=== PATIENT | female | born 1940 | race Caucasian/White ===

== ENCOUNTER 2017-10-17 08:17 | Inpatient (IN) | payer OTHER ==
[2017-10-08 12:35] VITALS: BMI 31.7
--- NOTE | 2017-10-17 07:24 | HP ---
Admitting History and Physical - Admission Chief Complaint: painful right total knee arthroplasty x years History of Present Illness: 76-year-old female presenting in regard to her right knee. Previous right total knee arthroplasty. Patient has complained of pain, limited range of motion, and difficulty ambulating. Patient has failed conservatuve treatment options including PO medication, activity modification and injections. After extensive studies it is determined that patient is right on the arthroplasty does reveal possible loosening of the components. Patient like to proceed with a revision right total knee arthroplasty. History Source: Patient - Past Medical History Cardiovascular: Yes: HTN, Hyperlipdemia ...: No Heme/Onc: Yes: Anemia Musculoskeletal: Yes: Osteoarthritis Endocrine: Yes: Diabetes Mellitus - Past Surgical History Additional Past Surgical History: previous right total knee arthroplasty - Advance Directives Advance Directives: Yes: Living Will, Health Care Proxy - Smoking History Smoking history: Never smoked Have you smoked in the past 12 months: No - Alcohol/Substance Use Hx Alcohol Use: No Home Medications - Allergies Allergies/Adverse Reactions: Allergies Allergy/AdvReac Type Severity Reaction Status Date / Time No Known Drug Allergies Allergy Verified 10/08/17 12:06 - Home Medications Home Medications: Ambulatory Orders Beta-Carotene(A) W-C and E/Min [Ocuvite (Nf)] 1 tab PO DAILY 10/08/17 Cyanocobalamin (Vitamin B-12) [Vitamin B12] 1,000 mcg PO DAILY 10/08/17 Ferrous Sulfate 325 mg PO DAILY 10/08/17 Furosemide 20 mg PO ASDIR PRN 10/08/17 Lisinopril 10 mg PO DAILY 10/08/17 Meloxicam 15 mg PO DAILY 10/08/17 Metformin HCl [Glucophage] 500 mg PO BID 10/08/17 Sumatriptan Succinate [Imitrex -] 100 mg PO ASDIR PRN 10/08/17 Physical Examination Constitutional: Yes: Well Nourished, No Distress Eyes: Yes: Conjunctiva Clear HENT: Yes: Atraumatic, Normocephalic Neck: Yes: Supple Cardiovascular: Yes: Regular Rate and Rhythm Respiratory: Yes: Regular Gastrointestinal: Yes: Soft ...Rectal Exam: Yes: Deferred Musculoskeletal: Yes: Joint Stiffness (right knee), Joint Swelling (right knee) , Other (painful right knee) Assessment/Plan 76-year-old female presenting in regard to her right knee. Previous right total knee arthroplasty. Patient has complained of pain, limited range of motion, and difficulty ambulating. Patient has failed conservative treatment options including PO medication, activity modification and injections. After extensive studies it is determined that patient is right on the arthroplasty does reveal possible loosening of the components. Pros, cons, risks, benefits, and alternatives of a revision right total knee arthroplasty were discussed with the patient at length. Patient confirms her understanding. Patient consents to proceed with a revision right total knee arthroplasty.
[~2017-10-17 08:17] MED LIST: CELECOXIB 200 MG CAPSULE PO ONE; GABAPENTIN 300 MG CAPSULE (FP) PO ONE; PANTOPRAZOLE 40 MG TABLET (FP) PO ONE; oxyCODONE HCL 10 MG SUSTAINED ACTING TABLET PO ONE
[2017-10-17] MEDS ORDERED: PANTOPRAZOLE 40 MG TABLET (FP) ONE (08:55)
[2017-10-17] MEDS ORDERED: CELECOXIB 200 MG CAPSULE ONE (08:56)
[2017-10-17] MEDS ORDERED: GABAPENTIN 300 MG CAPSULE (FP) ONE (08:56)
[2017-10-17] MEDS ORDERED: oxyCODONE HCL 10 MG SUSTAINED ACTING TABLET ONE (08:56)
[2017-10-17] MEDS ORDERED: SODIUM CHLORIDE 0.9% P/F 10 ML VIAL IJ ONE (10:30)
[2017-10-17] MEDS ORDERED: CEFAZOLIN 2 GM in DEXTROSE 5%-WATER - 50 ML IVPB ONE (10:30)
[2017-10-17] MEDS ORDERED: BUPIVACAINE LIPOSOME/PF (EXPAREL) 266 MG/20 ML VIAL ONE (10:30)
[2017-10-17] MEDS ORDERED: TRANEXAMIC ACID 1000 MG/10 ML VIAL IVPUSH ONE (10:30)
[2017-10-17] MEDS ORDERED: BUPIVACAINE HCL/PF (5 MG/ML) 30 ML VIAL IJ ONE (10:30)
[2017-10-17] MEDS ORDERED: ROPIVICAINE 0.2%/MORPH PF/KETOROLAC - 51ML DISP.SYRINGE IA ONE ×3 (10:30→16:42)
[2017-10-17] MEDS ORDERED: MIDAZOLAM HCL 2 MG/2 ML SINGLE DOSE VIAL ONE ×2 (10:30→15:41)
[2017-10-17] MEDS ORDERED: TRANEXAMIC ACID 1000 MG/10 ML VIAL ONE ×3 (11:25→16:34)
[2017-10-17] MEDS ORDERED: VANCOMYCIN 1,000 MG VIAL (RESTRICTED TO ID ONLY) ONE (11:25)
[2017-10-17] MEDS ORDERED: ceFAZolin SODIUM 1 GM VIAL ONE ×3 (11:25→16:39)
[2017-10-17] MEDS ORDERED: DEXAMETHASONE SOD PHOSPHATE 4 MG/1 ML VIAL ONE (11:58)
[2017-10-17] MEDS ORDERED: ONDANSETRON 4 MG/2 ML VIAL ONE (11:58)
[2017-10-17] MEDS ORDERED: PHENYLEPHRINE HCL 10 MG/1 ML SINGLE DOSE VIAL ONE (12:12)
[2017-10-17] MEDS ORDERED: PROPOFOL 20 ML ONE (16:13)
[2017-10-17] MEDS ORDERED: ONDANSETRON 4 MG/2 ML VIAL IVPUSH PRN ×2 (17:23→17:38)
[2017-10-17] MEDS ORDERED: oxyCODONE HCL 5 MG TABLET PO PRN (17:23)
[2017-10-17] MEDS ORDERED: ACETAMINOPHEN 1000 MG/100 ML VIAL (NON FORMULARY) IVPB ONE ×3 (17:23→18:00)
--- NOTE | 2017-10-17 17:27 | SURG ---
Surgery Vocational Training Teacher Note Vocational Training Teacher: Giacomo Hines PA-C Date of Service: 10/17/17 Diagnosis: Right knee osteoarthritis and knee pain Procedure: Right Total knee replacement revision I was present for the entirety of the operative procedure. For further detail, please refer to operative report.
[2017-10-17] MEDS ORDERED: ACETAMINOPHEN 325 MG TABLET (FP) PO SCH (17:30)
[2017-10-17] MEDS ORDERED: SUMAtriptan SUCCINATE 50 MG TABLET PO PRN (17:34)
[2017-10-17] MEDS ORDERED: MAG HYDROX/AL HYDROX/SIMETH 30 ML UNIT-DOSE CUP PO PRN (17:38)
[2017-10-17] MEDS ORDERED: ONDANSETRON 4 MG/2 ML VIAL IVPUSH ONE (17:38)
[2017-10-17] MEDS ORDERED: MAGNESIUM HYDROX 2400MG/30ML ORAL SUSPENSION 30 ML CUP PO PRN (17:38)
[2017-10-17] MEDS ORDERED: LACTATED RINGERS SOLUTION 1,000 ML IV SCH (17:45)
[2017-10-17] MEDS ORDERED: ACETAMINOPHEN INJECTION 100 ML IVPB ONE (17:49)
[2017-10-17] MEDS ORDERED: traMADol HCL 50 MG TABLET ONE (17:49)
[2017-10-17] MEDS ORDERED: KETOROLAC TROMETHAMINE 30 MG/1 ML VIAL ONE (17:49)
[2017-10-17] MEDS ORDERED: KETOROLAC TROMETHAMINE 15 MG/ML VIAL IVPUSH ONE (17:50)
[2017-10-17] MEDS ORDERED: traMADol HCL 50 MG TABLET PO ONE (18:20)
[2017-10-17] MEDS: metFORMIN HCL 500 MG TABLET (FP) PO SCH (20:30)
[2017-10-17] MEDS: CELECOXIB 200 MG CAPSULE PO SCH (21:29)
[2017-10-17] MEDS: oxyCODONE HCL 10 MG SUSTAINED ACTING TABLET PO SCH (21:30)
[2017-10-17] MEDS: GABAPENTIN 300 MG CAPSULE (FP) PO SCH (21:30)
[2017-10-17] MEDS: ASCORBIC ACID 500 MG TABLET (FP) PO SCH (21:32)
[2017-10-17] MEDS: SENNOSIDES/DOCUSATE COMBO (SENNA PLUS) TABLET (UD) PO SCH (21:32)
[2017-10-17] MEDS: oxyCODONE HCL 5 MG TABLET PO PRN (21:34)
[2017-10-17] MEDS: FERROUS SO4 325 MG TABLET (FP) PO SCH (21:35)
[2017-10-18] MEDS ORDERED: DEXAMETHASONE SOD PHOSPHATE 10 MG/1 ML VIAL IVPB ONE
[2017-10-18] MEDS: CEFAZOLIN 2 GM/D5W 2 GM/50 ML ML IVPB SCH ×3 (00:47→09:39)
[2017-10-18] MEDS: traMADol HCL 50 MG TABLET PO SCH ×5 (00:50→19:58)
[2017-10-18] MEDS: ACETAMINOPHEN 325 MG TABLET (FP) PO SCH ×4 (00:50→19:59)
[2017-10-18] MEDS: KETOROLAC TROMETHAMINE 30 MG/1 ML VIAL IVPUSH SCH ×4 (00:51→19:58)
[2017-10-18] MEDS ORDERED: DEXAMETHASONE SOD PHOSPHATE 10 MG/1 ML VIAL ONE (04:34)
[2017-10-18] MEDS: metFORMIN HCL 500 MG TABLET (FP) PO SCH ×2 (07:05→17:30)
[2017-10-18 09:29] LABS: HEMATOCRIT 27.8 % (32.4-45.2); HEMOGLOBIN 8.9 GM/dl (10.7-15.3); MCH 27.6 pg (25.7-33.7); MCHC 31.9 g/dl (32.0-36.0); MEAN CELL VOLUME 86.3 fl (80-96); MEAN PLT VOLUME 7.4 fl (7.5-11.1); PLATELET COUNT 202 K/MM3 (134-434); RBC 3.22 M/mm3 (3.60-5.2); RDW 14.6 % (11.6-15.6); WHITE BLOOD COUNT 8.4 K/mm3 (4.0-10.8)
[2017-10-18] MEDS: FERROUS SO4 325 MG TABLET (FP) PO SCH ×2 (09:31→17:30)
[2017-10-18] MEDS: CELECOXIB 200 MG CAPSULE PO SCH ×2 (09:31→21:41)
[2017-10-18] MEDS: SENNOSIDES/DOCUSATE COMBO (SENNA PLUS) TABLET (UD) PO SCH ×2 (09:31→21:42)
[2017-10-18] MEDS: ASCORBIC ACID 500 MG TABLET (FP) PO SCH ×2 (09:32→21:41)
[2017-10-18] MEDS: LISINOPRIL 10 MG TABLET (FP) PO SCH (09:32)
[2017-10-18] MEDS: ASPIRIN 325 MG TABLET PO SCH (09:32)
[2017-10-18] MEDS: MULTIVITAMINS (DAILY MVI) TABLET (FP) PO SCH (09:33)
[2017-10-18] MEDS: GABAPENTIN 300 MG CAPSULE (FP) PO SCH ×2 (09:33→21:41)
[2017-10-18] MEDS: PANTOPRAZOLE 40 MG TABLET (FP) PO SCH (09:34)
[2017-10-18 09:56] LABS: ANION GAP 6 (8-16); BLOOD UREA NITROGEN 18 mg/dl (7-18); CALCIUM 7.9 mg/dl (8.4-10.2); CHLORIDE 105 mmol/L (98-107); CO2 21 mmol/L (22-28); CREATININE 0.8 mg/dl (0.6-1.3); GLUCOSE,RANDOM 148 mg/dl (74-106); POTASSIUM 4.2 mmol/L (3.5-5.1); SODIUM 132 mmol/L (136-145)
[2017-10-18] MEDS: FUROSEMIDE 20 MG TABLET (FP) PO SCH (13:01)
--- NOTE | 2017-10-18 13:15 | PN ---
Progress Note (short form) - Note Progress Note: 76F POD1 s/p revision R TKR under spinal anesthetic with peripheral nerve blocks for post operative pain relief. Pt states that pain is well controlled and reports no anesthetic complications. AVSS. Motor and sensory function intact in bilateral lower extremities. Continue current regimen.
[2017-10-18] MEDS: oxyCODONE HCL 10 MG SUSTAINED ACTING TABLET PO SCH ×2 (15:27→21:41)
[2017-10-18] MEDS: LACTATED RINGERS SOLUTION 1,000 ML IV SCH ×2 (19:56→19:57)
[2017-10-18] MEDS: oxyCODONE HCL 5 MG TABLET PO PRN (20:14)
--- NOTE | 2017-10-18 20:21 | PN ---
Progress Note (short form) - Note Progress Note: Pt seen and examined. Doing well. AVSS Selected Entries 10/18/17 10/18/17 10/18/17 04:21 08:31 14:32 Temperature 98.6 F Pulse Rate 66 Respiratory 16 Rate Blood Pressure 110/43 O2 Sat by Pulse 96 92 L Oximetry (%) Oxygen Delivery Nasal Cannula Room Air Method Laboratory Tests 10/18/17 10/18/17 07:30 07:30 WBC 8.4 Hgb 8.9 L Hct 27.8 L Plt Count 202 Sodium 132 L Potassium 4.2 Chloride 105 Carbon Dioxide 21 L Anion Gap 6 L BUN 18 Creatinine 0.8 Creat Clearance w eGFR > 60 Random Glucose 148 H Calcium 7.9 L Gen: NAD RLE: c/d/i, NVID A/P 76yo female POD#1 s/p revision R TKA 1. PT/OOB 2. Plan for d/c to SNF Saturday
[2017-10-19] MEDS: ACETAMINOPHEN 325 MG TABLET (FP) PO SCH ×4 (00:30→19:34)
[2017-10-19] MEDS: traMADol HCL 50 MG TABLET PO SCH ×4 (01:07→18:34)
--- NOTE | 2017-10-19 06:04 | PDOC ---
*Physical Exam - Vital Signs Last Vital Signs Temp Pulse Resp BP Pulse Ox 98.4 F 74 20 114/56 95 10/19/17 03:30 10/19/17 03:30 10/19/17 03:30 10/19/17 03:30 10/18/17 22:15 ED Treatment Course - LABORATORY CBC & Chemistry Diagram: 10/19/17 07:50 10/18/17 07:30 - ADDITIONAL ORDERS Additional order review: 10/18/17 10/18/17 10/17/17 07:30 07:03 17:34 RBC 3.22 L MCV 86.3 MCHC 31.9 L RDW 14.6 MPV 7.4 L POC Glucometer 155 232 10/17/17 08:52 RBC MCV MCHC RDW MPV POC Glucometer 83 - Medications Given in the ED: ED Medications Discontinued Medications Generic Name Dose Route Start Last Admin Trade Name Kaliq PRN Reason Stop Dose Admin Acetaminophen 1,000 mg 10/17/17 18:00 10/18/17 19:56 Ofirmev Injection - IVPB 10/17/17 18:01 Not Given ONCE ONE Celecoxib 200 mg 10/16/17 19:01 10/17/17 09:05 Celebrex - PO 10/16/17 19:02 200 mg ASU-PREOP ONE Administration Dexamethasone Sodium Phosphate 10 mg 10/18/17 00:00 10/18/17 00:00 Decadron Injection - IVPB 10/18/17 00:01 10 mg ONCE ONE Administration Gabapentin 600 mg 10/16/17 19:01 10/18/17 20:03 Neurontin - PO 10/16/17 19:02 Not Given ASU-PREOP ONE Cefazolin Sodium 2 gm/ 50 mls @ 100 mls/hr 10/17/17 10:30 10/18/17 20:02 Dextrose IVPB 10/17/17 10:59 Not Given ANES-PREOP ONE Lactated Ringer's 1,000 mls @ 125 mls/hr 10/17/17 17:45 10/18/17 19:56 Lactated Ringers Solution IV 10/18/17 06:00 Not Given ASDIR MERLIN Cefazolin Sodium/Dextrose 2 gm in 50 mls @ 200 mls/hr 10/17/17 18:00 09:39 Ancef 2 Gm Premixed Ivpb - IVPB 10/18/17 10:14 200 mls/hr Q8H-IV MERLIN Administration Ketorolac Tromethamine 15 mg 10/17/17 17:45 10/18/17 19:58 Toradol Injection - IVPUSH 10/18/17 11:46 Not Given Q6H MERLIN Oxycodone HCl 10 mg 10/16/17 19:01 10/18/17 20:03 Oxycontin - PO 10/16/17 19:02 Not Given ASU-PREOP ONE Pantoprazole Sodium 40 mg 10/16/17 19:02 10/18/17 20:03 Protonix - PO 10/16/17 19:03 Not Given ONCE ONE Ropivacaine 51 ml 10/17/17 10:30 10/18/17 19:57 Carlota-Operative Pain Cocktail IA 10/17/17 10:31 Not Given ONCE ONE Tranexamic Acid 1,000 mg 10/17/17 10:30 10/18/17 19:57 Tranexamic Acid - IVPUSH 10/17/17 10:31 Not Given ONCE ONE Medical Decision Making - Medical Decision Making 10/19/17 05:58 Patient ambulated to the bathroom tonight, she states that after getting up from toilet ndn prior to washing hands, she was leaning on her walker when the walker slipped and she placed her weight on her right knee that was recently replaced. She felt a twinge of pain and fell to her left side as a result, and twisted to the floor. Pt was lifted up by nurses. I evaluated her knee and there is no undue warmth or bruising. Her knee joint is stable and she has no surrounding tenderness. Pt is able to flex her right hip and right knee, but she is unable to do a striaght leg raise. Unclear if patellar tendon is injured. Pt will not require XR or CT scan at this time. She will be evaluated by her doctors in the AM. SHe may require MRI for further eval, as per her orthopedists. Pt has been reassured. She is comfortable. A+Ox3 no distress. No further treatment at this time. *DC/Admit/Observation/Transfer Diagnosis at time of Disposition: Knee buckling - Referrals - Patient Instructions - Post Discharge Activity
[2017-10-19] MEDS: metFORMIN HCL 500 MG TABLET (FP) PO SCH ×2 (06:57→16:30)
[2017-10-19] MEDS: ASPIRIN 325 MG TABLET PO SCH (07:57)
[2017-10-19] MEDS: FERROUS SO4 325 MG TABLET (FP) PO SCH ×2 (07:58→17:30)
[2017-10-19 09:24] LABS: HEMATOCRIT 25.1 % (32.4-45.2); HEMOGLOBIN 8.3 GM/dl (10.7-15.3); MCH 28.5 pg (25.7-33.7); MCHC 33.1 g/dl (32.0-36.0); MEAN CELL VOLUME 86.1 fl (80-96); MEAN PLT VOLUME 7.1 fl (7.5-11.1); PLATELET COUNT 176 K/MM3 (134-434); RBC 2.91 M/mm3 (3.60-5.2); RDW 14.6 % (11.6-15.6); WHITE BLOOD COUNT 6.2 K/mm3 (4.0-10.8)
[2017-10-19] MEDS: oxyCODONE HCL 10 MG SUSTAINED ACTING TABLET PO SCH ×2 (09:33→22:35)
[2017-10-19] MEDS: GABAPENTIN 300 MG CAPSULE (FP) PO SCH ×2 (09:33→22:36)
[2017-10-19] MEDS: PANTOPRAZOLE 40 MG TABLET (FP) PO SCH (09:33)
[2017-10-19] MEDS: CELECOXIB 200 MG CAPSULE PO SCH ×2 (09:34→22:36)
[2017-10-19] MEDS: ASCORBIC ACID 500 MG TABLET (FP) PO SCH ×2 (09:34→22:36)
[2017-10-19] MEDS: LISINOPRIL 10 MG TABLET (FP) PO SCH (09:34)
[2017-10-19] MEDS: MULTIVITAMINS (DAILY MVI) TABLET (FP) PO SCH (09:34)
[2017-10-19] MEDS: FUROSEMIDE 20 MG TABLET (FP) PO SCH (09:34)
[2017-10-19] MEDS: SENNOSIDES/DOCUSATE COMBO (SENNA PLUS) TABLET (UD) PO SCH ×2 (09:34→22:36)
[2017-10-20] MEDS: ACETAMINOPHEN 325 MG TABLET (FP) PO SCH ×3 (00:02→12:24)
[2017-10-20] MEDS: traMADol HCL 50 MG TABLET PO SCH ×4 (00:02→17:41)
[2017-10-20] MEDS: metFORMIN HCL 500 MG TABLET (FP) PO SCH ×2 (07:01→17:41)
--- NOTE | 2017-10-20 07:20 | PN ---
Progress Note (short form) - Note Progress Note: Pt seen and examined. Doing well. AVSS Selected Entries 10/19/17 10/19/17 10/20/17 22:00 22:15 05:57 Temperature 97.8 F 97.6 F Pulse Rate 75 80 Respiratory 19 18 Rate Blood Pressure 109/42 106/45 O2 Sat by Pulse 95 94 L Oximetry (%) Oxygen Delivery Room Air Room Air Method Laboratory Tests 10/19/17 07:50 WBC 6.2 Hgb 8.3 L Hct 25.1 L Plt Count 176 Gen: NAD RLE: c/d/i, NVID A/P 76yo female s/p revision R TKA 1. PT/OOB 2. Plan for d/c to SNF Saturday
[2017-10-20] MEDS: SENNOSIDES/DOCUSATE COMBO (SENNA PLUS) TABLET (UD) PO SCH ×2 (09:12→21:16)
[2017-10-20] MEDS: oxyCODONE HCL 10 MG SUSTAINED ACTING TABLET PO SCH ×2 (09:12→22:55)
[2017-10-20] MEDS: MULTIVITAMINS (DAILY MVI) TABLET (FP) PO SCH (09:14)
[2017-10-20] MEDS: ASCORBIC ACID 500 MG TABLET (FP) PO SCH ×2 (09:14→21:16)
[2017-10-20] MEDS: FUROSEMIDE 20 MG TABLET (FP) PO SCH (09:14)
[2017-10-20] MEDS: PANTOPRAZOLE 40 MG TABLET (FP) PO SCH (09:15)
[2017-10-20] MEDS: CELECOXIB 200 MG CAPSULE PO SCH ×2 (09:15→21:16)
[2017-10-20] MEDS: FERROUS SO4 325 MG TABLET (FP) PO SCH ×2 (09:15→17:41)
[2017-10-20] MEDS: GABAPENTIN 300 MG CAPSULE (FP) PO SCH (09:15)
[2017-10-20] MEDS: ASPIRIN 325 MG TABLET PO SCH (09:15)
[2017-10-20] MEDS: LISINOPRIL 10 MG TABLET (FP) PO SCH (09:15)
[2017-10-20] MEDS ORDERED: oxyCODONE HCL 5 MG TABLET PO PRN ×2 (22:38)
[2017-10-21] MEDS: ACETAMINOPHEN 325 MG TABLET (FP) PO SCH ×3 (00:56→12:00)
[2017-10-21] MEDS: traMADol HCL 50 MG TABLET PO SCH ×3 (00:56→12:00)
[2017-10-21] MEDS: metFORMIN HCL 500 MG TABLET (FP) PO SCH (06:40)
[2017-10-21 06:45] VITALS: BP 116/48; PULSE 82; TEMP 98.1
--- NOTE | 2017-10-21 08:25 | DS ---
Physical Examination Vital Signs: Vital Signs Temperature 98.1 F 10/21/17 06:00 Pulse Rate 82 10/21/17 06:00 Respiratory Rate 18 10/21/17 06:00 Blood Pressure 116/48 10/21/17 06:00 O2 Sat by Pulse Oximetry (%) 99 10/21/17 06:43 Labs: CBC, BMP 10/19/17 07:50 10/18/17 07:30 Discharge Summary Reason For Visit: HISTORY OF TTL KNEE REPLACEMENT Current Active Problems Knee buckling (Acute) Procedures: Principal: Revision right TKA Hospital Course: Admitted for elective surgery. Procedure performed without complications. Pt received postoperative antibiotic prophylaxis and DVT ppx. Ambulated with physical therapy. Stable for discharge to SNF with outpatient followup. Condition: Stable - Instructions Diet, Activity, Other Instructions: Dr. Ceja - Knee Replacement Instructions Keep the Aquacel dressing on until removed by Dr. Ceja in 10-14 days - it is antibacterial and waterproof and you can shower with it on. Call the office for a follow-up appointment with Dr. Ceja in 10-14 days. [phone] Take one Aspirin 325mg daily for 6 weeks to prevent blood clots in your legs. Take one Pantoprazole 40mg daily for 6 weeks to protect against heartburn and ulcers. Take Cephalexin (antibiotic) 3x/day for 10 days to help prevent skin infection. Take Celebrex 200mg daily for 30 days to reduce swelling and inflammation. Take a multivitamin, stool softener, and extra Vitamin C supplement daily. For pain: *Mild pain (1-3/10): Take 1 Tramadol tablet every 4 hours as needed. Moderate pain (4-6/10): Take 1 Tramadol tablet and 1 Percocet tablet every 4 hours as needed. Severe pain (7-10/10): Take 1 Tramadol tablet and 2 Percocet tablets every 4 hours as needed. Activity: You can put as much weight on the operative leg as you want. Right after you get home, there will be a physical therapist coming to your house to help you walk around and bend/straighten your knee. After your follow-up appointment, you will be sent for more intensive outpatient physical therapy which will include machines and equipment that the home therapist cannot bring to your house. Always use a walker or cane for balance and to prevent falls. Expect to see swelling/bruising from the operative site all the way down to your toes. Wear the compression stocking on the operative side during the day to minimize how much swelling there is in your foot/ankle. Don't wear the stocking at night. You don't have to wear a stocking on the other side. Disposition: [facility] - Home Medications Comprehensive Discharge Medication List: Ambulatory Orders Beta-Carotene(A) W-C and E/Min [Ocuvite (Nf) -] 1 tab PO DAILY 10/08/17 Cyanocobalamin (Vitamin B-12) [Vitamin B12] 1,000 mcg PO DAILY 10/08/17 Ferrous Sulfate 325 mg PO DAILY 10/08/17 Furosemide 20 mg PO ASDIR PRN 10/08/17 Lisinopril 10 mg PO DAILY 10/08/17 Metformin HCl [Glucophage] 500 mg PO BID 10/08/17 Sumatriptan Succinate [Imitrex -] 100 mg PO ASDIR PRN 10/08/17 Ascorbic Acid [Vitamin C -] 500 mg PO BID tablet 10/21/17 Aspirin [ASA -] 325 mg PO DAILY@0800 tablet 10/21/17 Celecoxib [CeleBREX -] 200 mg PO DAILY #30 capsule 10/21/17 Cephalexin Monohydrate [Keflex -] 500 mg PO TID #30 capsule 10/21/17 Ferrous Sulfate [Feosol] 325 mg PO BIDWM ud 10/21/17 Mag Hydrox/Al Hydrox/Simeth [Mylanta Oral Suspension -] 30 ml PO Q4H PRN cup Magnesium Hydrox 2400MG/30Ml [Milk of Magnesia -] 30 ml PO PRN PRN cup Multivitamins [Multivit ([facility] Formulary)] 1 tab PO DAILY tab 10/21/17 Oxycodone HCl/Acetaminophen [Percocet 5-325 mg Tablet] 1 - 2 tab PO Q4H PRN #60 tablet MDD 10 10/21/17 Pantoprazole Sodium [Protonix -] 40 mg PO DAILY #40 tablet.ec 10/21/17 Sennosides/Docusate Sodium [Pericolace -] 2 tablet PO BID tablet 10/21/17 traMADol HCL [Ultram -] 50 mg PO Q4H PRN #42 tablet MDD 6 10/21/17
[2017-10-21] MEDS: ASPIRIN 325 MG TABLET PO SCH (09:25)
[2017-10-21] MEDS: MULTIVITAMINS (DAILY MVI) TABLET (FP) PO SCH (09:26)
[2017-10-21] MEDS: PANTOPRAZOLE 40 MG TABLET (FP) PO SCH (09:26)
[2017-10-21] MEDS: LISINOPRIL 10 MG TABLET (FP) PO SCH (09:26)
[2017-10-21] MEDS: ASCORBIC ACID 500 MG TABLET (FP) PO SCH (09:26)
[2017-10-21] MEDS: CELECOXIB 200 MG CAPSULE PO SCH (09:26)
[2017-10-21] MEDS: FERROUS SO4 325 MG TABLET (FP) PO SCH (09:26)
[2017-10-21] MEDS: oxyCODONE HCL 10 MG SUSTAINED ACTING TABLET PO SCH (09:27)
[2017-10-21] MEDS: FUROSEMIDE 20 MG TABLET (FP) PO SCH (09:27)
[2017-10-21] MEDS: SENNOSIDES/DOCUSATE COMBO (SENNA PLUS) TABLET (UD) PO SCH (09:27)
[2017-10-21] MEDS ORDERED: oxyCODONE HCL 10 MG SUSTAINED ACTING TABLET PO SCH (10:00)
--- NOTE | 2017-10-21 11:43 | PN ---
Progress Note (short form) - Note Progress Note: Pt seen and examined. Doing well. AVSS Selected Entries 10/21/17 10/21/17 06:00 06:43 Temperature 98.1 F Pulse Rate 82 Respiratory 18 Rate Blood Pressure 116/48 O2 Sat by Pulse 99 Oximetry (%) Oxygen Delivery Room Air Method Gen: NAD RLE: c/d/i, NVID A/P 76yo female s/p revision R TKA 1. PT/OOB 2. Plan for d/c to SNF today
--- NOTE | 2017-10-22 10:38 | PATH ---
Surgical Pathology Report Patient Name: GENIE ONEILL Med. Rec. #: [id number] /Age/Gender: 1940 (Age: 76) / F Account: [id number] Location: [facility] Taken: 10/17/2017 Received: 10/17/2017 Reported: 10/22/2017 Physicians: Kaiser Ceja M.D. Specimen(s) Received EXPLANTED HARDWARE RIGHT KNEE Clinical History Painful total knee replacement Final Diagnosis HARDWARE, KNEE, RIGHT, EXPLANTATION: SURGICAL HARDWARE. MACROSCOPIC DIAGNOSIS. Electronically Signed Mely Taylor M.D. Gross Description Received fresh labeled "explanted hardware right knee," are 3 pepe metallic and white plastic portions of hardware but consistent with a knee explant. The specimens average 6.5 cm in greatest dimension. No soft tissue is present. No sections are submitted, gross only. /10/21/2017 saudi10/21/2017
--- NOTE | 2017-10-24 09:05 | OP ---
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 POSTOPERATIVE DIAGNOSIS: Failed right total knee replacement. PROCEDURE: Revision of right total knee replacement. ATTENDING: Tony Washington MD TIRE TESTER: LEONARDO Marie ANESTHESIA: Spinal plus sedation. ESTIMATED BLOOD LOSS: 300 mL COMPLICATIONS: None. DISPOSITION: The patient was transferred to the PACU in stable condition. IMPLANTS USED: [employer] Triathlon revision system, size 3 femoral component with 100-mm stem, size 2 tibial component with 100-mm stem, 19-mm total-stabilized polyethylene component. INDICATIONS: This is a 76-year-old female who presented to the office complaining of a painful right total knee replacement. She had had the knee replaced approximately 2 years prior and had never had full pain relief after the surgery. She had severe pain and ambulatory dysfunction despite physical therapy and nonoperative postop management. Multiple studies were performed to evaluate for infection and loosening, and there was found to be no evidence of infection, though a bone scan did indicate that there was uptake suggestive of loosening of the components. Because the patient had severe pain that was unrelenting, we elected to proceed with a revision of the total knee replacement. The risks, benefits, and alternatives to the procedure were explained to the patient and her daughter in great detail, and they elected to proceed with the surgery. On the day of surgery, the patient was taken to the operating room and placed on the OR table. Spinal anesthesia was administered by anesthesiologist. The patient was then positioned supine on the table, and all bony prominences were padded. A non-sterile tourniquet was placed on the proximal thigh. The right knee was then prepped and draped in the usual sterile fashion, and intravenous antibiotics were given for infection prophylaxis. A surgical timeout was then performed with the team, and the patient's identity, procedure, side, availability of implants, and the administration of antibiotics were confirmed. With the knee flexed, a midline incision was made and carried down through the subcutaneous fat to the underlying retinaculum. This incision incorporated the previous knee replacement incision scar. A medial parapatellar arthrotomy was performed. This was followed by a subperiosteal dissection of the tissue off the proximal medial tibia. A portion of the fat pad and scar tissue was removed from under the patella tendon which was found to be fibrotic and thickened. A small portion of fat and scar tissue was excised off a distal supracondylar femur as well. Additional arthrolysis was performed as scar tissue was removed using electrocautery and sharp dissection to re-establish the medial and lateral gutters. There was found to be copious scar tissue located in all compartments of the knee. The knee was then flexed further, and the polyethylene insert was removed to create space to work and to provide greater visualization of the components. The patellar component was found to be well positioned and well fixed with no evidence of loosening and was, therefore, left alone. Hohmann retractors were then placed around the distal femur, and flexible and rigid osteotomes were used to separate the femoral and tibial components from the underlying bone, taking care to preserve as much bone stock as possible. It was found that the tibial component appeared to have subsided into the cancellous bone of the tibial plateau, leaving a rim of cortex that extended above the base of the baseplate. The proximal tibia was then reamed with successively larger reamers until chatter was felt and there was good friction fit. From here, a tibial cutting guide was attached to the shaft of the reamer, and the proximal tibia was then cut with a saw to provide a flat plateau for placement of the revision component. Once this was completed, trial components were placed, and the knee was taken through a full range of motion. Soft tissue balance was assessed in both flexion and extension and found to be appropriate. The patient had preoperatively had significant varus/valgus laxity, and the MCL and LCL were found to be significantly attenuated, requiring the use of a thick polyethylene component. Once the knee was tested, it was found to be stable throughout the full range of motion and was found to have both good balance and good patellar tracking. All the trial components were then removed. All bony surfaces were then cleaned with pulsatile lavage, and the tourniquet was inflated. The bony interface was further irrigated and dried. Bone cement was then prepared on the back table, and final components were assembled and cemented in place in the usual fashion. Extruded cement was removed. The polyethylene trial was placed and the knee was put into extension and axial compression was applied for compression while the cement hardened. Once the cement had hardened, the knee was taken through a full range of motion to assess stability, balance, and patellar tracking. This was found to be appropriate, and the trial polyethylene was exchanged for the appropriately sized real implant. The wound was then thoroughly irrigated with normal saline. A 3-minute dilute Betadine lavage was performed. Following this, the wound was again thoroughly irrigated with normal saline via pulsatile lavage, and wound closure was begun. Number 2 FiberWire and number 0 V-Loc 180 barbed sutures were used to close the arthrotomy. Number 1 Vicryl and 2-0 V-Loc 90 sutures were used in the subcutaneous tissues. The skin was closed using both 3-0 V-Loc 90 suture in a running subcuticular fashion and Dermabond skin adhesive. Once this was completed, a sterile Aquacel dressing was applied. The leg was then wrapped in Webril and an Liam wrap from thigh to toes. The tourniquet was then deflated, and the patient was awakened and taken to the PACU in stable condition. TONY WASHINGTON M.D. [id number]
== END 2017-10-21 13:25 | DRG 468 ==
LOC: FM/S 08:17
PROVIDERS: ADMIT Student in an Organized Health Care Education/Training Program; ATTEND Student in an Organized Health Care Education/Training Program
PROC: 0SPC0JZ Removal of Synthetic Substitute from Right Knee Joint, Open Approach (ICD-10-PCS; 2017-10-17)
PROC: 0SRC0JZ Replacement of Right Knee Joint with Synthetic Substitute, Open Approach (ICD-10-PCS; principal; 2017-10-17 12:33)
DX: T84.032A Mechanical loosening of internal right knee prosthetic joint, initial encounter (principal); I10 Essential (primary) hypertension; E78.5 Hyperlipidemia, unspecified; Z79.84 Long term (current) use of oral hypoglycemic drugs; E11.9 Type 2 diabetes mellitus without complications; D64.9 Anemia, unspecified; Y83.8 Other surgical procedures as the cause of abnormal reaction of the patient, or of later complication, without mention of misadventure at the time of the procedure
CPT/HCPCS: 36415; 73560-TC-RT-FY; 80048; 82962; 85027; 88300-TC; 97116-GP; 97162-GP; J0131; J1100

== ENCOUNTER 2017-10-23 12:16 | Inpatient (IN) | payer OTHER ==
--- NOTE | 2017-10-23 13:20 | PDOC ---
*Physical Exam - Vital Signs Last Vital Signs Temp Pulse Resp BP Pulse Ox 98 F 78 16 132/47 95 10/23/17 12:20 10/23/17 12:20 10/23/17 12:20 10/23/17 12:20 10/23/17 12:20 <Donna Lindsey - Last Filed: 10/23/17 13:26> - Vital Signs Last Vital Signs Temp Pulse Resp BP Pulse Ox 98 F 78 16 132/47 95 10/23/17 12:20 10/23/17 12:20 10/23/17 12:20 10/23/17 12:20 10/23/17 12:20 - Physical Exam Comments: 10/23/17 13:18 The patient was examined by [LEONARDO Dong] under my direct supervision. I personally evaluated the patient. I concur with the above findings and the plan of care. <Edgard Velazco - Last Filed: 10/26/17 02:12> ED Treatment Course - LABORATORY CBC & Chemistry Diagram: 10/25/17 11:20 10/25/17 11:40 <Edgard Velazoc - Last Filed: 10/26/17 02:12> *DC/Admit/Observation/Transfer <Donna Lindsey - Last Filed: 10/23/17 13:26> <Edgard Velazco - Last Filed: 10/26/17 02:12> Diagnosis at time of Disposition: Wound dehiscence - Discharge Dispostion Condition at time of disposition: Stable
--- NOTE | 2017-10-23 13:29 | PDOC ---
History of Present Illness - General Chief Complaint: Injury Stated Complaint: KNEE INJURY Time Seen by Provider: 10/23/17 12:50 History Source: Patient Exam Limitations: No Limitations - History of Present Illness Initial Comments: CHIEF COMPLAINT: 76 y/o afebrile female who had a right total knee replacement revision surgery on 10/17/17 here for suture opening. HISTORY OF PRESENT ILLNESS: The patient was at a SNF and just finishing physical therapy today when her right knee buckled. Her right knee bent too much and her stitches opened. The doctor at the SNF dressed the wound and sent her here. She denies fever or foul smelling discharge. She denies numbness/ tingling in affected extremity. Vital signs on arrival are within normal limits. REVIEW OF SYSTEMS: GENERAL/CONSTITUTIONAL: No fever/chills. No weakness. No weight change. MUSCULOSKELETAL: +right knee pain. No neck or back pain. SKIN: +opening of right knee surgery scar NEUROLOGIC: No headache, vertigo, loss of consciousness, or loss of sensation. PHYSICAL EXAM: VITAL_SIGNS: within normal limits GENERAL_APPEARANCE: alert, cooperative, no obvious discomfort. MENTAL_STATUS: speech clear, oriented X 3, responds appropriately to questions. NEURO: motor intact and sensory intact in injured extremity. EXTREMITIES: Swelling to right knee joint, most likely post surgical swelling. Distal 1/2 of right midline surgical scar wide open, draining serosanguious fluid. SKIN: warm, dry, good color. Past History - Past Medical History Allergies/Adverse Reactions: Allergies Allergy/AdvReac Type Severity Reaction Status Date / Time No Known Drug Allergies Allergy Verified 10/23/17 12:55 Home Medications: Ambulatory Orders Furosemide 20 mg PO ASDIR PRN 10/08/17 Lisinopril 10 mg PO DAILY 10/08/17 Metformin HCl [Glucophage] 500 mg PO BID 10/08/17 Ascorbic Acid [Vitamin C -] 500 mg PO BID tablet 10/21/17 Aspirin [ASA -] 325 mg PO DAILY@0800 tablet 10/21/17 Celecoxib [CeleBREX -] 200 mg PO DAILY #30 capsule 10/21/17 Ferrous Sulfate [Feosol] 325 mg PO BIDWM ud 10/21/17 Mag Hydrox/Al Hydrox/Simeth [Mylanta Oral Suspension -] 30 ml PO Q4H PRN cup Magnesium Hydrox 2400MG/30Ml [Milk of Magnesia -] 30 ml PO PRN PRN cup Multivitamins [Multivit ([facility] Formulary)] 1 tab PO DAILY tab 10/21/17 Pantoprazole Sodium [Protonix -] 40 mg PO DAILY #40 tablet.ec 10/21/17 Acetaminophen [Pain Reliever] 500 mg PO Q8H PRN 10/23/17 Cephalexin Monohydrate [Keflex -] 500 mg PO Q8H 10/23/17 Docusate Sodium 200 mg PO HS 10/23/17 Mag Hydrox/Aluminum Hyd/Simeth [Alum-Mag Hydroxide-Simeth Liq] 30 ml PO Q4H PRN 10/23/17 Oxycodone HCl [Roxicodone] 5 mg PO Q4H PRN 10/23/17 Sennosides/Docusate Sodium [Pericolace -] 2 tablet PO HS 10/23/17 Anemia: Yes (TAKING IRON) Asthma: No Cancer: Yes (RIGHT BREAST X2,S/P SX,RT,CHEMO 2000,2010 RIGHT) Cardiac Disorders: No CVA: No COPD: No CHF: No Dementia: No Diabetes: Yes (RECENTLY STARTED ON METFORMIN) GI Disorders: No Disorders: No HTN: Yes Hypercholesterolemia: No Liver Disease: No Seizures: No Thyroid Disease: No - Surgical History Abdominal Surgery: No Appendectomy: No Cardiac Surgery: No Cholecystectomy: Yes Lung Surgery: No Neurologic Surgery: No Orthopedic Surgery: Yes (RIGHT TKR 04/23,RIGHT SHOULDER SX 2007) - Suicide/Smoking/Psychosocial Hx Smoking History: Never smoked Have you smoked in the past 12 months: No Information on smoking cessation initiated: No Hx Alcohol Use: No Drug/Substance Use Hx: No Substance Use Type: None Hx Substance Use Treatment: No *Physical Exam - Vital Signs Last Vital Signs Temp Pulse Resp BP Pulse Ox 98 F 78 16 132/47 95 10/23/17 12:20 10/23/17 12:20 10/23/17 12:20 10/23/17 12:20 10/23/17 12:20 Medical Decision Making - Medical Decision Making A/P: 76 y/o female with right knee surgical scar dehiscence. Placed call to her surgeon, Dr. Kaiser Ceja. Spoke with Dr. Ceja. He will accept admission of her to [facility]. He will take her to surgery tomorrow. Patient and her daughter made aware *DC/Admit/Observation/Transfer Diagnosis at time of Disposition: Wound dehiscence - Discharge Dispostion Condition at time of disposition: Stable Decision to Admit order: Yes - Referrals - Patient Instructions - Post Discharge Activity
[2017-10-23] MEDS ORDERED: TRANEXAMIC ACID 1000 MG/10 ML VIAL IVPUSH ONE (15:23)
[2017-10-23] MEDS ORDERED: ROPIVICAINE 0.2%/MORPH PF/KETOROLAC - 51ML DISP.SYRINGE IA ONE (15:23)
[2017-10-23] MEDS ORDERED: MAG HYDROX/AL HYDROX/SIMETH 30 ML UNIT-DOSE CUP PO PRN ×2 (15:24)
[2017-10-23] MEDS ORDERED: MAGNESIUM HYDROX 2400MG/30ML ORAL SUSPENSION 30 ML CUP PO PRN (15:24)
[2017-10-23] MEDS ORDERED: CEPHALEXIN MONOHYDRATE 500 MG CAPSULE (UD) PO SCH (15:30)
[2017-10-23] MEDS ORDERED: FERROUS SO4 325 MG TABLET (FP) PO SCH (17:30)
[2017-10-23] MEDS ORDERED: metFORMIN HCL 500 MG TABLET (FP) ONE (17:49)
[2017-10-23] MEDS ORDERED: oxyCODONE HCL 5 MG TABLET ONE (17:49)
[2017-10-23] MEDS ORDERED: FERROUS SO4 325 MG TABLET (FP) ONE (17:50)
[2017-10-23] MEDS: traMADol HCL 50 MG TABLET PO SCH (18:00)
[2017-10-23] MEDS: oxyCODONE HCL 5 MG TABLET PO PRN (18:00)
[2017-10-23] MEDS ORDERED: CEFAZOLIN 2 GM/D5W 2 GM/50 ML ML IVPB SCH (18:00)
[2017-10-23] MEDS: metFORMIN HCL 500 MG TABLET (FP) PO SCH (18:01)
[2017-10-23] MEDS: oxyCODONE HCL 10 MG SUSTAINED ACTING TABLET PO SCH (21:55)
[2017-10-23] MEDS: ASCORBIC ACID 500 MG TABLET (FP) PO SCH (21:55)
[2017-10-23] MEDS: SENNOSIDES/DOCUSATE COMBO (SENNA PLUS) TABLET (UD) PO SCH (21:55)
[2017-10-23] MEDS: CELECOXIB 200 MG CAPSULE PO SCH (21:55)
[2017-10-24] MEDS: traMADol HCL 50 MG TABLET PO SCH ×4 (00:06→19:01)
[2017-10-24] MEDS: CEFAZOLIN 2 GM/D5W 2 GM/50 ML ML IVPB SCH ×2 (02:00→06:30)
--- NOTE | 2017-10-24 02:52 | HP ---
History & Physical Update - History History: Change (see notes) (76yo female s/p R TKA revision 10/17/17. Was dischaged to SNF. Lost balance and fell today while doing stairs with PT and hyperflexed the knee with weight causing wound dehiscence. BIBA and admitted for I&D and wound closure in OR. PE: Gen: NAD Right knee - distal half of wound has completely dehisced. Joint capsule visible. No active bleeding. No gross instability of prosthesis.) - Assessment Currently as noted:: Right TKA wound dehiscence - Plan Currently as noted:: I&D and wound closure in AM. Wound dressed with betadine packing.
[2017-10-24] MEDS: oxyCODONE HCL 5 MG TABLET PO PRN (03:53)
[2017-10-24] MEDS: metFORMIN HCL 500 MG TABLET (FP) PO SCH ×3 (06:30→18:24)
[2017-10-24] MEDS ORDERED: VANCOMYCIN 1 GRAM (PRE-DOCKED) 1,000 MG/250 ML BAG IVPB ONE (07:00)
[2017-10-24] MEDS: FERROUS SO4 325 MG TABLET (FP) PO SCH ×3 (08:42→18:24)
[2017-10-24 09:04] LABS: BASO % 0.5 % (0-2.0); EOS % 3.6 % (0-4.5); HEMATOCRIT 23.9 % (32.4-45.2); HEMOGLOBIN 7.8 GM/dl (10.7-15.3); LYMPH % 19.6 % (8-40); MCH 28.3 pg (25.7-33.7); MCHC 32.5 g/dl (32.0-36.0); MEAN CELL VOLUME 86.9 fl (80-96); MEAN PLT VOLUME 6.1 fl (7.5-11.1); MONO % 8.2 % (3.8-10.2); NEUT % 68.1 % (42.8-82.8); PLATELET COUNT 222 K/MM3 (134-434); RBC 2.75 M/mm3 (3.60-5.2); RDW 16.2 % (11.6-15.6)
[2017-10-24 09:36] LABS: ANION GAP 4 (8-16); BLOOD UREA NITROGEN 11 mg/dl (7-18); CALCIUM 7.7 mg/dl (8.4-10.2); CHLORIDE 106 mmol/L (98-107); CO2 25 mmol/L (22-28); CREATININE 0.6 mg/dl (0.6-1.3); GLUCOSE,RANDOM 132 mg/dl (74-106); POTASSIUM 3.7 mmol/L (3.5-5.1); SODIUM 135 mmol/L (136-145)
[2017-10-24] MEDS: VANCOMYCIN 1 GRAM (PRE-DOCKED) 1,000 MG/250 ML BAG IVPB SCH (09:41)
[2017-10-24] MEDS: CELECOXIB 200 MG CAPSULE PO SCH (09:41)
[2017-10-24] MEDS: oxyCODONE HCL 10 MG SUSTAINED ACTING TABLET PO SCH (09:42)
[2017-10-24] MEDS: LISINOPRIL 10 MG TABLET (FP) PO SCH (09:43)
[2017-10-24] MEDS: PANTOPRAZOLE 40 MG TABLET (FP) PO SCH (09:44)
[2017-10-24] MEDS: MULTIVITAMINS (DAILY MVI) TABLET (FP) PO SCH (09:44)
[2017-10-24] MEDS: ASCORBIC ACID 500 MG TABLET (FP) PO SCH (09:45)
[2017-10-24] MEDS ORDERED: VANCOMYCIN 1 GRAM (PRE-DOCKED) 1,000 MG/250 ML BAG IVPB SCH (10:00)
[2017-10-24] MEDS ORDERED: ONDANSETRON 4 MG/2 ML VIAL IVPUSH PRN (19:58)
[2017-10-24] MEDS ORDERED: LACTATED RINGERS SOLUTION 1,000 ML IV SCH (20:00)
[2017-10-24] MEDS ORDERED: ceFAZolin SODIUM 1 GM VIAL ONE ×2 (20:08→20:24)
[2017-10-24] MEDS ORDERED: PROPOFOL 20 ML ONE ×3 (20:13)
[2017-10-24] MEDS ORDERED: fentaNYL CITRATE 250 MCG/5 ML VIAL ONE (20:13)
[2017-10-24] MEDS ORDERED: LIDOCAINE HCL/PF 2% SDV 5ML VIAL ONE (20:14)
[2017-10-24] MEDS ORDERED: PHENYLEPHRINE HCL 10 MG/1 ML SINGLE DOSE VIAL ONE (20:14)
[2017-10-24] MEDS ORDERED: ONDANSETRON 4 MG/2 ML VIAL ONE (20:24)
[2017-10-24] MEDS ORDERED: SODIUM CHLORIDE 0.9% P/F 10 ML VIAL IJ ONE (20:24)
[2017-10-24] MEDS ORDERED: HYDROmorphone HCL/PF 1 MG/ML VIAL (FOR PYXIS CHARGING ONLY) ONE ×2 (20:57→23:03)
[2017-10-24] MEDS ORDERED: ESMOLOL HCL 100,000 MCG/10 ML VIAL ONE (21:45)
[2017-10-24] MEDS ORDERED: VANCOMYCIN 1,000 MG VIAL (RESTRICTED TO ID ONLY) ONE (22:15)
[2017-10-24] MEDS ORDERED: VANCOMYCIN 1,000 MG VIAL (RESTRICTED TO ID ONLY) IVPB ONE (22:17)
[2017-10-25] MEDS: CELECOXIB 200 MG CAPSULE PO SCH ×3 (00:47→22:24)
[2017-10-25] MEDS: traMADol HCL 50 MG TABLET PO SCH ×4 (00:47→18:21)
[2017-10-25] MEDS: VANCOMYCIN 1 GRAM (PRE-DOCKED) 1,000 MG/250 ML BAG IVPB SCH ×3 (00:47→22:25)
[2017-10-25] MEDS: oxyCODONE HCL 10 MG SUSTAINED ACTING TABLET PO SCH ×3 (00:48→22:24)
[2017-10-25] MEDS: SENNOSIDES/DOCUSATE COMBO (SENNA PLUS) TABLET (UD) PO SCH ×2 (00:48→22:24)
[2017-10-25] MEDS: ASCORBIC ACID 500 MG TABLET (FP) PO SCH ×3 (00:48→22:24)
[2017-10-25] MEDS ORDERED: LACTATED RINGERS SOLUTION 1,000 ML IV SCH (01:00)
[2017-10-25] MEDS: ACETAMINOPHEN 1000 MG/100 ML VIAL (NON FORMULARY) IVPB ONE ×2 (01:13→01:25)
--- NOTE | 2017-10-25 01:14 | OP ---
Operative Note - Note: Operative Date: 10/24/17 Pre-Operative Diagnosis: right TKA wound dehiscence Operation: I&D, polyethylene exchange, patellar tendon repair, incisional VAC placement Post-Operative Diagnosis: Other (wound dehiscence, patellar tendon rupture/ avulsion) Surgeon: Kaiser Ceja Nurse Extern: Sangeeta Veliz Anesthesia: General Estimated Blood Loss (mls): 200
[2017-10-25] MEDS: KETOROLAC TROMETHAMINE 30 MG/1 ML VIAL IVPUSH SCH ×4 (01:26→18:23)
[2017-10-25] MEDS: CEFAZOLIN 2 GM/D5W 2 GM/50 ML ML IVPB SCH ×2 (01:59→10:19)
[2017-10-25 02:28] LABS: HEMATOCRIT 17.5 % (32.4-45.2); MCH 27.8 pg (25.7-33.7); MEAN CELL VOLUME 89.7 fl (80-96); MEAN PLT VOLUME 6.6 fl (7.5-11.1); PLATELET COUNT 198 K/MM3 (134-434); RBC 1.95 M/mm3 (3.60-5.2); RDW 16.7 % (11.6-15.6); WHITE BLOOD COUNT 4.9 K/mm3 (4.0-10.0)
[2017-10-25 02:35] LABS: HEMOGLOBIN 5.4 GM/dL (10.7-15.3)
[2017-10-25] MEDS: PANTOPRAZOLE 40 MG TABLET (FP) PO SCH (10:16)
[2017-10-25] MEDS: MULTIVITAMINS (DAILY MVI) TABLET (FP) PO SCH (10:16)
[2017-10-25] MEDS: LISINOPRIL 10 MG TABLET (FP) PO SCH ×2 (10:17→12:04)
[2017-10-25] MEDS: metFORMIN HCL 500 MG TABLET (FP) PO SCH ×2 (10:17→18:22)
[2017-10-25] MEDS: FERROUS SO4 325 MG TABLET (FP) PO SCH ×3 (10:17→18:22)
--- NOTE | 2017-10-25 10:23 | CONSULT ---
Consultation: REQUESTING PROVIDER: Dr Rashaad Ceja CONSULT REQUEST: We have been asked to medically evaluate this patient for medical management. . HISTORY OF PRESENT ILLNESS: patient is a 76-year-old morbidly obese female with a past medical history of osteoarthritis, iron deficiency anemia, hypertension, diabetes mellitus and migraines. Patient underwent a right total knee replacement with revision on 10/17/2017. She was discharged to rehabilitation on 10/23/2017 she hyperflexed her right knee and fell subsequently dehiscing the distal wound of the right knee. On 10/24/2017 she underwent a right knee incision and drainage, poly exchange, patella tendon repair (patellar tendon rupture avulsion) with incisional VAC placement. Of note patient is a Jehovah witness andpost operative repeats hemoglobin is 5.9 REVIEW OF SYSTEMS: CONSTITUTIONAL: present generalized weakness and malaise Absent: fever, chills, diaphoresis, generalized weakness, malaise, loss of appetite, weight change HEENT: Absent: rhinorrhea, nasal congestion, throat pain, throat swelling, difficulty swallowing, mouth swelling, ear pain, eye pain, visual changes CARDIOVASCULAR: Absent: chest pain, syncope, palpitations, irregular heart rate, lightheadedness , peripheral edema RESPIRATORY: Absent: cough, shortness of breath, dyspnea with exertion, orthopnea, wheezing, stridor, hemoptysis GASTROINTESTINAL: Absent: abdominal pain, abdominal distension, nausea, vomiting, diarrhea, constipation, melena, hematochezia GENITOURINARY: Absent: dysuria, frequency, urgency, hesitancy, hematuria, flank pain, genital pain MUSCULOSKELETAL: present: Right knee pain Absent: myalgia, arthralgia, joint swelling, back pain, neck pain SKIN: Absent: rash, itching, pallor HEMATOLOGIC/IMMUNOLOGIC: Absent: easy bleeding, easy bruising, lymphadenopathy, frequent infections ENDOCRINE: Absent: unexplained weight gain, unexplained weight loss, heat intolerance, cold intolerance NEUROLOGIC: Absent: headache, focal weakness or paresthesias, dizziness, unsteady gait, seizure, mental status changes, bladder or bowel incontinence PSYCHIATRIC: Absent: anxiety, depression, suicidal or homicidal ideation, hallucinations. PHYSICAL EXAMINATION Vital Signs - 24 hr 10/24/17 10/24/17 10/24/17 14:07 19:25 19:35 Temperature 97.7 F Pulse Rate 73 Respiratory 16 16 16 Rate Blood Pressure 122/55 O2 Sat by Pulse Oximetry (%) 10/25/17 10/25/17 10/25/17 00:23 00:28 00:33 Temperature 98.4 F Pulse Rate 122 H 123 H 119 H Respiratory 18 16 15 Rate Blood Pressure 106/54 112/53 98/52 O2 Sat by Pulse 95 95 98 Oximetry (%) 10/25/17 10/25/17 10/25/17 00:38 00:53 01:00 Temperature Pulse Rate 120 H 117 H 105 H Respiratory 16 14 14 Rate Blood Pressure 105/50 111/54 108/54 O2 Sat by Pulse 99 99 98 Oximetry (%) 10/25/17 10/25/17 10/25/17 01:15 01:30 01:55 Temperature 98.4 F Pulse Rate 103 H 103 H 95 H Respiratory 14 14 20 Rate Blood Pressure 104/54 104/54 109/51 O2 Sat by Pulse 97 Oximetry (%) 10/25/17 10/25/17 10/25/17 02:26 04:00 06:00 Temperature 98.0 F Pulse Rate 85 88 Respiratory 20 20 20 Rate Blood Pressure 98/48 103/42 O2 Sat by Pulse 97 97 98 Oximetry (%) GENERAL: Awake, alert, and fully oriented, in no acute distress. HEAD: Normal with no signs of trauma. EYES: Pupils equal, round and reactive to light, extraocular movements intact, pale sclera, conjunctiva Pallar. No lid lag. EARS, NOSE, THROAT: Ears normal, nares patent, oropharynx clear without exudates. Moist mucous membranes. NECK: Normal range of motion, supple without lymphadenopathy, JVD, or masses. LUNGS: Breath sounds equal, clear to auscultation bilaterally. No wheezes, and no crackles. No accessory muscle use. HEART: Regular rate and rhythm, normal S1 and S2 without murmur, rub or gallop. ABDOMEN: Soft, nontender, not distended, normoactive bowel sounds, no guarding, no rebound, no masses. No hepatomegaly or splenomegaly. MUSCULOSKELETAL: Normal range of motion at all joints. No bony deformities or tenderness. No CVA tenderness. UPPER EXTREMITIES: 2+ pulses, warm, well-perfused. No cyanosis. No clubbing. Cap refill <2 seconds. No peripheral edema. LOWER EXTREMITIES: 2+ pulses, warm, well-perfused. No calf tenderness. No peripheral edema. RIGHT LOWER EXTREMITY: Dressing CDI, VAC dressing, less than 3 second capillary refill +3 pedal pulse SCDs NEUROLOGICAL: Cranial nerves II-XII intact. Normal speech. Normal gait. PSYCHIATRIC: Cooperative. Good eye contact. Appropriate mood and affect. SKIN: Warm, dry, normal turgor, no rashes or lesions noted. Laboratory Results - last 24 hr 10/24/17 10/25/17 10/25/17 17:56 00:19 00:30 WBC 4.9 RBC 1.95 L Hgb 5.4 L* Hct 17.5 L MCV 89.7 MCH 27.8 MCHC 31.0 L RDW 16.7 H Plt Count 198 MPV 6.6 L POC Glucometer 130 222 10/25/17 05:58 WBC RBC Hgb Hct MCV MCH MCHC RDW Plt Count MPV POC Glucometer 148 Active Medications Generic Name Dose Route Start Last Admin Trade Name Freq PRN Reason Stop Dose Admin Al Hydroxide/Mg Hydroxide 30 ml 10/23/17 15:24 Mylanta Oral Suspension - PO Q4H PRN DYSPEPSIA Ascorbic Acid 500 mg 10/23/17 22:00 10/25/17 10:17 Vitamin C - PO 500 mg BID MERLIN Administration Aspirin 325 mg 10/26/17 08:00 Asa - PO DAILY@0800 MERLIN Celecoxib 200 mg 10/23/17 22:00 10/25/17 10:16 Celebrex - PO 200 mg BID MERLIN Administration Ferrous Sulfate 325 mg 10/24/17 08:00 10/25/17 10:17 Feosol - PO 325 mg TIDCM MERLIN Administration Cefazolin Sodium/Dextrose 2 gm in 50 mls @ 100 mls/hr 10/25/17 02:00 10:19 Ancef 2 Gm Premixed Ivpb - IVPB 100 mls/hr Q8H-IV MERLIN Administration Ketorolac Tromethamine 15 mg 10/25/17 01:15 10/25/17 10:19 Toradol Injection - IVPUSH 10/25/17 19:16 15 mg Q6H MERLIN Administration Lisinopril 10 mg 10/24/17 10:00 10/24/17 09:43 Prinivil PO 10 mg DAILY MERLIN Administration Magnesium Hydroxide 30 ml 10/23/17 15:24 Milk Of Magnesia - PO PRN PRN CONSTIPATION Metformin HCl 500 mg 10/23/17 16:30 10/25/17 10:17 Glucophage - PO 500 mg BIDAC MERLIN Administration Multivitamins/Minerals/Vitamin C 1 tab 10/24/17 10:00 10/25/17 10:16 Tab-A-Vit - PO 1 tab DAILY MERLIN Administration Ondansetron HCl 4 mg 10/24/17 19:58 10/25/17 00:30 Zofran Injection IVPUSH 4 mg Q6H PRN Administration NAUSEA AND/OR VOMITING Oxycodone HCl 5 mg 10/23/17 15:24 Roxicodone - PO Q4H PRN PAIN LEVEL 1-5 Oxycodone HCl 10 mg 10/23/17 15:26 10/24/17 03:53 Roxicodone - PO 10/26/17 15:27 10 mg Q4H PRN Administration PAIN LEVEL 6-10 Oxycodone HCl 10 mg 10/23/17 22:00 10/25/17 10:18 Oxycontin - PO 10 mg BID MERLIN Administration Pantoprazole Sodium 40 mg 10/24/17 10:00 10/25/17 10:16 Protonix - PO 40 mg DAILY MERLIN Administration Senna/Docusate Sodium 2 tablet 10/23/17 22:00 10/25/17 00:48 Pericolace - PO Not Given HS [facility] Tramadol HCl 50 mg 10/23/17 15:45 10/25/17 06:04 Ultram - PO 50 mg Q6HPO MERLIN Administration Vancomycin HCl 1,000 mg 10/24/17 09:00 10/25/17 10:18 Vancomycin (Pre-Docked) IVPB 1,000 mg BID@0900,2100 MERLIN Administration Protocol ASSESSMENT/PLAN: 1) MS s/p right knee incision and drainage, poly exchange, patella tendon repair w/ vac placement, 10/24/17, POD #1 - Physical therapy as per orthopedist weightbearing to right lower extremity with knee brace and walker - Incentive spirometer - When necessary pain medication - q4 hoursNeurovascular and monitor drainage of vac dressing 2) heme/onc normocytic anemia - repeat hgb 5.4, baseline 8.9, discontinue IV fluids,iron studies and vitamin [id number], repeat CBC ordered we will start iron infusion discussed hemoglobin with patient at length, patient adamantly declines any blood transfusion, patient made aware of the risk MO or patient verbalizes that she understands the risks and still adamantly declines any blood transfusions. 3) cardiovascular hypertension - hold lisinopril, labile b/p, monitor b/p q4h 4) endo DM - continue metformin, fingersticks achs with regular insulin sliding scale f/e/n - diabetic diet - replete electrolytes prn ppx - hold chemical ac secondary to severe anemia, mechanical AC only - protonix Dispo: We will continue to follow the patient. Thank you for this consultative opportunity. Visit type - Emergency Visit Emergency Visit: No - New Patient This patient is new to me today: No - Critical Care Critical Care patient: No
[2017-10-25 11:47] LABS: ANION GAP 4 (8-16); BLOOD UREA NITROGEN 12 mg/dl (7-18); CALCIUM 7.5 mg/dl (8.4-10.2); CHLORIDE 104 mmol/L (98-107); CO2 25 mmol/L (22-28); CREATININE 0.7 mg/dl (0.6-1.3); GLUCOSE,RANDOM 195 mg/dl (74-106); SODIUM 133 mmol/L (136-145)
[2017-10-25 11:48] LABS: MAGNESIUM 1.6 mg/dL (1.8-2.4); PHOSPHOROUS 2.8 mg/dl (2.5-4.6)
[2017-10-25 11:49] LABS: BASO % 0.2 % (0-2.0); EOS % 1.2 % (0-4.5); LYMPH % 12.9 % (8-40); MCHC 32.1 g/dl (32.0-36.0); MEAN CELL VOLUME 87.4 fl (80-96); NEUT % 78.7 % (42.8-82.8); PLATELET COUNT 200 K/MM3 (134-434); RBC 2.29 M/mm3 (3.60-5.2); RDW 16.2 % (11.6-15.6); WHITE BLOOD COUNT 3.7 K/mm3 (4.0-10.8)
[2017-10-25] MEDS ORDERED: IRON SUCROSE INJECTION 200 MG in SODIUM CHLORIDE 100 ML IVPB ONE (12:00)
[2017-10-25 12:01] LABS: MEAN PLT VOLUME 5.6 fl (7.5-11.1)
[2017-10-25 12:04] LABS: HEMOGLOBIN 6.4 GM/dl (10.7-15.3)
[2017-10-25] MEDS ORDERED: MAGNESIUM SULFATE 2 GM in SODIUM CHLORIDE 100 ML IVPB ONE (12:36)
[2017-10-25] MEDS ORDERED: MAGNESIUM SULFATE IN WATER 2 GM/50 ML IVPB IVPB ONE (13:00)
[2017-10-25 16:58] VITALS: BMI 32.1
--- NOTE | 2017-10-25 18:35 | PN ---
Progress Note (short form) - Note Progress Note: Pt seen and examined Saturday. Comfortable. Awake/alert. Medicine consulted. Selected Entries 10/25/17 10/25/17 10/25/17 18:00 19:14 21:00 Temperature 98.4 F Pulse Rate 83 Respiratory 18 Rate Blood Pressure 90/21 O2 Sat by Pulse 97 Oximetry (%) Oxygen Delivery Room Air Room Air Method 10/25/17 10/25/17 22:00 22:57 Temperature 98.0 F Pulse Rate 80 Respiratory 18 Rate Blood Pressure 95/37 O2 Sat by Pulse 97 Oximetry (%) Oxygen Delivery Room Air Method Laboratory Tests 10/25/17 10/25/17 10/25/17 00:19 00:30 11:20 WBC 4.9 3.7 L Hgb 5.4 L* 6.4 L* Hct 17.5 L 20.0 L D Plt Count 198 200 Sodium Potassium Chloride Carbon Dioxide Anion Gap BUN Creatinine Creat Clearance w eGFR POC Glucometer 222 10/25/17 11:40 WBC Hgb Hct Plt Count Sodium 133 L Potassium 4.0 Chloride 104 Carbon Dioxide 25 Anion Gap 4 L BUN 12 Creatinine 0.7 Creat Clearance w eGFR > 60 POC Glucometer Gen: NAD RLE: VAC in place, functional A/P s/p I&D right TKA, poly exchange, patellar tendon repair Continue to monitor H/H Hold PT Knee immobilizer at all times.
[2017-10-26] MEDS: traMADol HCL 50 MG TABLET PO SCH ×4 (00:07→18:33)
[2017-10-26] MEDS: CEFAZOLIN 2 GM/D5W 2 GM/50 ML ML IVPB SCH ×4 (01:24→18:33)
[2017-10-26] MEDS: metFORMIN HCL 500 MG TABLET (FP) PO SCH ×2 (06:44→16:30)
[2017-10-26] MEDS: ASPIRIN 325 MG TABLET PO SCH (08:30)
[2017-10-26] MEDS: FERROUS SO4 325 MG TABLET (FP) PO SCH ×3 (08:30→16:30)
[2017-10-26 09:17] LABS: ANION GAP 2 (8-16); BLOOD UREA NITROGEN 8 mg/dl (7-18); CALCIUM 7.4 mg/dl (8.4-10.2); CHLORIDE 106 mmol/L (98-107); CO2 26 mmol/L (22-28); CREATININE 0.5 mg/dl (0.6-1.3); GLUCOSE,RANDOM 124 mg/dl (74-106); SODIUM 134 mmol/L (136-145)
[2017-10-26 09:40] LABS: HEMATOCRIT 20.6 % (32.4-45.2); MCH 28.3 pg (25.7-33.7); MCHC 32.4 g/dl (32.0-36.0); MEAN CELL VOLUME 87.3 fl (80-96); MEAN PLT VOLUME 6.2 fl (7.5-11.1); PLATELET COUNT 223 K/MM3 (134-434); RBC 2.35 M/mm3 (3.60-5.2); RDW 16.2 % (11.6-15.6); WHITE BLOOD COUNT 3.8 K/mm3 (4.0-10.8)
[2017-10-26 09:47] LABS: HEMOGLOBIN 6.7 GM/dl (10.7-15.3)
[2017-10-26] MEDS: VANCOMYCIN 1 GRAM (PRE-DOCKED) 1,000 MG/250 ML BAG IVPB SCH ×2 (10:38→21:16)
[2017-10-26] MEDS: LISINOPRIL 10 MG TABLET (FP) PO SCH (10:39)
[2017-10-26] MEDS: MULTIVITAMINS (DAILY MVI) TABLET (FP) PO SCH (10:40)
[2017-10-26] MEDS: PANTOPRAZOLE 40 MG TABLET (FP) PO SCH (10:40)
[2017-10-26] MEDS: CELECOXIB 200 MG CAPSULE PO SCH ×2 (10:40→21:17)
[2017-10-26] MEDS: oxyCODONE HCL 10 MG SUSTAINED ACTING TABLET PO SCH ×2 (10:41→21:17)
[2017-10-26] MEDS: ASCORBIC ACID 500 MG TABLET (FP) PO SCH ×2 (10:41→21:17)
--- NOTE | 2017-10-26 11:25 | PN ---
Physical Exam: SUBJECTIVE: Patient seen and examined. Pt still c/o Rt knee pain 8/10, denies dizziness,weakness,cp,sob,palpitations, abdominal pain,N/V/D or urinary symptoms. OBJECTIVE: Vital Signs Period Temp Pulse Resp BP Sys/Bear Pulse Ox Last 24 Hr 98 F-98.4 F 71-83 16-18 90-118/21-45 95-97 GENERAL: The patient is awake, alert, and fully oriented, in no acute distress. HEAD: Normal with no signs of trauma. EYES: PERRL, extraocular movements intact, sclera anicteric, conjunctiva clear. No ptosis. ENT: Ears normal, nares patent, oropharynx clear without exudates, moist mucous membranes. NECK: Trachea midline, full range of motion, supple. LUNGS: Breath sounds equal, clear to auscultation bilaterally, no wheezes, no crackles, no accessory muscle use. HEART: Regular rate and rhythm, S1, S2 without murmur, rub or gallop. ABDOMEN: Soft, nontender, nondistended, normoactive bowel sounds, no guarding, no rebound, no hepatosplenomegaly, no masses. EXTREMITIES: 2+ pulses, warm, well-perfused, RT knee dsg and immobilizer intact NEUROLOGICAL: Cranial nerves II through XII grossly intact. Normal speech, gait not observed. PSYCH: Normal mood, normal affect. SKIN: Warm, dry, normal turgor, no rashes or lesions noted Laboratory Results - last 24 hr 10/25/17 10/25/17 10/25/17 11:00 11:20 11:20 WBC 3.7 L RBC 2.29 L Hgb 6.4 L* Hct 20.0 L D MCV 87.4 MCH 28.0 MCHC 32.1 RDW 16.2 H Plt Count 200 MPV 5.6 L Absolute Neuts (auto) 2.9 Neutrophils % 78.7 Lymphocytes % 12.9 Monocytes % 7.0 Eosinophils % 1.2 Basophils % 0.2 Retic Count Sodium Potassium Chloride Carbon Dioxide Anion Gap BUN Creatinine Creat Clearance w eGFR Random Glucose Calcium Phosphorus 2.8 Magnesium 1.6 L Ferritin Vitamin B12 1063 H 10/25/17 10/25/17 10/25/17 11:20 11:20 11:40 WBC RBC Hgb Hct MCV MCH MCHC RDW Plt Count MPV Absolute Neuts (auto) Neutrophils % Lymphocytes % Monocytes % Eosinophils % Basophils % Retic Count 5.18 H Sodium 133 L Potassium 4.0 Chloride 104 Carbon Dioxide 25 Anion Gap 4 L BUN 12 Creatinine 0.7 Creat Clearance w eGFR > 60 Random Glucose 195 H D Calcium 7.5 L Phosphorus Magnesium Ferritin 34.1 Vitamin B12 10/26/17 10/26/17 07:35 07:35 WBC 3.8 L RBC 2.35 L Hgb 6.7 L* Hct 20.6 L MCV 87.3 MCH 28.3 MCHC 32.4 RDW 16.2 H Plt Count 223 MPV 6.2 L Absolute Neuts (auto) Neutrophils % Lymphocytes % Monocytes % Eosinophils % Basophils % Retic Count Sodium 134 L Potassium 4.0 Chloride 106 Carbon Dioxide 26 Anion Gap 2 L BUN 8 Creatinine 0.5 L Creat Clearance w eGFR > 60 Random Glucose 124 H D Calcium 7.4 L Phosphorus Magnesium Ferritin Vitamin B12 Active Medications Generic Name Dose Route Start Last Admin Trade Name Freq PRN Reason Stop Dose Admin Al Hydroxide/Mg Hydroxide 30 ml 10/23/17 15:24 Mylanta Oral Suspension - PO Q4H PRN DYSPEPSIA Ascorbic Acid 500 mg 10/23/17 22:00 10/26/17 10:41 Vitamin C - PO 500 mg BID MERLIN Administration Aspirin 325 mg 10/26/17 08:00 10/26/17 08:30 Asa - PO 325 mg DAILY@0800 MERLIN Administration Celecoxib 200 mg 10/23/17 22:00 10/26/17 10:40 Celebrex - PO 200 mg BID MERLIN Administration Ferrous Sulfate 325 mg 10/24/17 08:00 10/26/17 08:30 Feosol - PO 325 mg TIDCM MERLIN Administration Cefazolin Sodium/Dextrose 2 gm in 50 mls @ 100 mls/hr 10/25/17 02:00 10:38 Ancef 2 Gm Premixed Ivpb - IVPB 100 mls/hr Q8H-IV MERLIN Administration Lisinopril 10 mg 10/24/17 10:00 10/26/17 10:39 Prinivil PO Not Given DAILY MERLIN Magnesium Hydroxide 30 ml 10/23/17 15:24 Milk Of Magnesia - PO PRN PRN CONSTIPATION Metformin HCl 500 mg 10/23/17 16:30 10/26/17 06:44 Glucophage - PO 500 mg BIDAC MERLIN Administration Multivitamins/Minerals/Vitamin C 1 tab 10/24/17 10:00 10/26/17 10:40 Tab-A-Vit - PO 1 tab DAILY MERLIN Administration Ondansetron HCl 4 mg 10/24/17 19:58 10/25/17 00:30 Zofran Injection IVPUSH 4 mg Q6H PRN Administration NAUSEA AND/OR VOMITING Oxycodone HCl 5 mg 10/23/17 15:24 Roxicodone - PO Q4H PRN PAIN LEVEL 1-5 Oxycodone HCl 10 mg 10/23/17 15:26 10/24/17 03:53 Roxicodone - PO 10/26/17 15:27 10 mg Q4H PRN Administration PAIN LEVEL 6-10 Oxycodone HCl 10 mg 10/23/17 22:00 10/26/17 10:41 Oxycontin - PO 10 mg BID MERLIN Administration Pantoprazole Sodium 40 mg 10/24/17 10:00 10/26/17 10:40 Protonix - PO 40 mg DAILY MERLIN Administration Senna/Docusate Sodium 2 tablet 10/23/17 22:00 10/25/17 22:24 Pericolace - PO 2 tablet HS MERLIN Administration Tramadol HCl 50 mg 10/23/17 15:45 10/26/17 06:43 Ultram - PO 50 mg Q6HPO MERLIN Administration Vancomycin HCl 1,000 mg 10/24/17 09:00 10/26/17 10:38 Vancomycin (Pre-Docked) IVPB 1,000 mg BID@0900,2100 MERLIN Administration Protocol ASSESSMENT/PLAN: The patient is a 76-year-old morbidly obese female with a past medical history of osteoarthritis, iron deficiency anemia, hypertension, diabetes mellitus and migraines. Patient underwent a right total knee replacement with revision on 03/2018. Hyperflexed the knee with weight causing wound dehiscence. BIBA and admitted for I&D and wound closure in OR. *MS -s/p right knee incision and drainage, poly exchange, patella tendon repair w/ vac placement, 10/24/17, POD #2 - ortho following -rec weight bearing to right lower extremity with knee brace and walker - Physical therapy eval - encouraged to use Incentive spirometer - pain control - bowel regimen - q4 hours Neuro vascular and monitor drainage of vac dressing - use Knee brace - on abxs * Anemia/onc -normocytic anemia-baseline 8.9, -H5.4>6.7 - Fe studies pending - B12 - 1063 - s/p Fe infusion -patient adamantly declines any blood transfusion, patient made aware of the risk NH or patient verbalizes that she understands the risks and still adamantly declines any blood transfusions. - will check stool OB *Hypertension-low BP improved -will hold off on lisinopril and monitor *DM- BS stable - continue metformin, - FS Ac& HS with regular insulin sliding scale * Low Mg - s/p replacement - will check Mg level, K-wnl *f/e/n - diabetic diet - replete electrolytes prn ppx - holding chemical ac secondary to severe anemia, mechanical AC only - protonix Dispo: We will continue to follow the patient. Visit type - Emergency Visit Emergency Visit: Yes ED Registration Date: 10/23/17 Care time: The patient presented to the Emergency Department on the above date and was hospitalized for further evaluation of their emergent condition. - New Patient This patient is new to me today: No - Critical Care Critical Care patient: No
[2017-10-26] MEDS: oxyCODONE HCL 5 MG TABLET PO PRN (20:30)
[2017-10-26] MEDS: SENNOSIDES/DOCUSATE COMBO (SENNA PLUS) TABLET (UD) PO SCH (21:17)
[2017-10-27] MEDS: traMADol HCL 50 MG TABLET PO SCH ×5 (00:14→23:55)
[2017-10-27] MEDS: CEFAZOLIN 2 GM/D5W 2 GM/50 ML ML IVPB SCH ×3 (01:11→17:02)
[2017-10-27] MEDS: metFORMIN HCL 500 MG TABLET (FP) PO SCH ×2 (06:31→16:08)
[2017-10-27 08:09] LABS: BASO % 0.5 % (0-2.0); EOS % 3.2 % (0-4.5); HEMATOCRIT 21.3 % (32.4-45.2); LYMPH % 17.4 % (8-40); MCH 28.2 pg (25.7-33.7); MCHC 31.9 g/dl (32.0-36.0); MEAN CELL VOLUME 88.4 fl (80-96); MEAN PLT VOLUME 6.2 fl (7.5-11.1); MONO % 6.2 % (3.8-10.2); NEUT % 72.7 % (42.8-82.8); PLATELET COUNT 242 K/MM3 (134-434); RBC 2.41 M/mm3 (3.60-5.2); RDW 16.6 % (11.6-15.6); WHITE BLOOD COUNT 3.7 K/mm3 (4.0-10.8)
[2017-10-27 08:20] LABS: HEMOGLOBIN 6.8 GM/dl (10.7-15.3)
[2017-10-27] MEDS: ASPIRIN 325 MG TABLET PO SCH (08:36)
[2017-10-27] MEDS: FERROUS SO4 325 MG TABLET (FP) PO SCH ×2 (08:36→12:25)
--- NOTE | 2017-10-27 08:58 | PN ---
Physical Exam: SUBJECTIVE: Patient seen and examined, reports feeling better,no new complains. OBJECTIVE: Vital Signs Period Temp Pulse Resp BP Sys/Bear Pulse Ox Last 24 Hr 98.0 F-98.5 F 71-93 16-19 103-120/38-52 93-95 GENERAL: The patient is awake, alert, and fully oriented, in no acute distress, resting comfortably in bed HEAD: Normal with no signs of trauma. EYES: PERRL, extraocular movements intact, sclera anicteric, conjunctiva clear. No ptosis. ENT: Ears normal, nares patent, oropharynx clear without exudates, moist mucous membranes. NECK: Trachea midline, full range of motion, supple. LUNGS: Breath sounds equal, clear to auscultation bilaterally, no wheezes, no crackles, no accessory muscle use. HEART: Regular rate and rhythm, S1, S2 without murmur, rub or gallop. ABDOMEN: Soft, nontender, nondistended, normoactive bowel sounds, no guarding, no rebound, no hepatosplenomegaly, no masses. EXTREMITIES: 2+ pulses, warm, well-perfused, RT knee dsg and immobilizer intact NEUROLOGICAL: Cranial nerves II through XII grossly intact. Normal speech, gait not observed. PSYCH: Normal mood, normal affect. SKIN: Warm, dry, normal turgor, no rashes or lesions noted Laboratory Results - last 24 hr 10/26/17 10/26/17 10/26/17 07:35 07:35 12:20 WBC 3.8 L RBC 2.35 L Hgb 6.7 L* Hct 20.6 L MCV 87.3 MCH 28.3 MCHC 32.4 RDW 16.2 H Plt Count 223 MPV 6.2 L Absolute Neuts (auto) Neutrophils % Lymphocytes % Monocytes % Eosinophils % Basophils % Sodium 134 L Potassium 4.0 Chloride 106 Carbon Dioxide 26 Anion Gap 2 L BUN 8 Creatinine 0.5 L Creat Clearance w eGFR > 60 Random Glucose 124 H D Calcium 7.4 L Magnesium 2.1 10/27/17 07:30 WBC 3.7 L RBC 2.41 L Hgb 6.8 L* Hct 21.3 L MCV 88.4 MCH 28.2 MCHC 31.9 L RDW 16.6 H Plt Count 242 MPV 6.2 L Absolute Neuts (auto) 2.8 Neutrophils % 72.7 Lymphocytes % 17.4 Monocytes % 6.2 Eosinophils % 3.2 Basophils % 0.5 Sodium Potassium Chloride Carbon Dioxide Anion Gap BUN Creatinine Creat Clearance w eGFR Random Glucose Calcium Magnesium Active Medications Generic Name Dose Route Start Last Admin Trade Name Freq PRN Reason Stop Dose Admin Al Hydroxide/Mg Hydroxide 30 ml 10/23/17 15:24 Mylanta Oral Suspension - PO Q4H PRN DYSPEPSIA Ascorbic Acid 500 mg 10/23/17 22:00 10/26/17 21:17 Vitamin C - PO 500 mg BID MERLIN Administration Aspirin 325 mg 10/26/17 08:00 10/27/17 08:36 Asa - PO 325 mg DAILY@0800 MERLIN Administration Calcium/Vitamin D 1 tab 10/27/17 10:00 Oscal 250 Mg+D - PO DAILY MERLIN Celecoxib 200 mg 10/23/17 22:00 10/26/17 21:17 Celebrex - PO 200 mg BID MERLIN Administration Ferrous Sulfate 325 mg 10/24/17 08:00 10/27/17 08:36 Feosol - PO 325 mg TIDCM MERLIN Administration Cefazolin Sodium/Dextrose 2 gm in 50 mls @ 100 mls/hr 10/25/17 02:00 01:11 Ancef 2 Gm Premixed Ivpb - IVPB 100 mls/hr Q8H-IV MERLIN Administration Lisinopril 10 mg 10/24/17 10:00 10/26/17 10:39 Prinivil PO Not Given DAILY [facility] Magnesium Hydroxide 30 ml 10/23/17 15:24 Milk Of Magnesia - PO PRN PRN CONSTIPATION Metformin HCl 500 mg 10/23/17 16:30 10/27/17 06:31 Glucophage - PO 500 mg BIDAC MERLIN Administration Multivitamins/Minerals/Vitamin C 1 tab 10/24/17 10:00 10/26/17 10:40 Tab-A-Vit - PO 1 tab DAILY MERLIN Administration Ondansetron HCl 4 mg 10/24/17 19:58 10/25/17 00:30 Zofran Injection IVPUSH 4 mg Q6H PRN Administration NAUSEA AND/OR VOMITING Oxycodone HCl 5 mg 10/23/17 15:24 10/26/17 20:30 Roxicodone - PO 5 mg Q4H PRN Administration PAIN LEVEL 1-5 Oxycodone HCl 10 mg 10/23/17 22:00 10/26/17 21:17 Oxycontin - PO 10 mg BID MERLIN Administration Pantoprazole Sodium 40 mg 10/24/17 10:00 10/26/17 10:40 Protonix - PO 40 mg DAILY MERLIN Administration Senna/Docusate Sodium 2 tablet 10/23/17 22:00 10/26/17 21:17 Pericolace - PO 2 tablet HS MERLIN Administration Tramadol HCl 50 mg 10/23/17 15:45 10/27/17 06:32 Ultram - PO 50 mg Q6HPO MERLIN Administration Vancomycin HCl 1,000 mg 10/24/17 09:00 10/26/17 21:16 Vancomycin (Pre-Docked) IVPB 1,000 mg BID@0900,2100 MERLIN Administration Protocol Imaging Rt knee X'ray: No acute fracture ASSESSMENT/PLAN: The patient is a 76-year-old morbidly obese female with a past medical history of osteoarthritis, iron deficiency anemia, hypertension, diabetes mellitus and migraines. Patient underwent a right total knee replacement with revision on 03/2018. Hyperflexed the knee with weight causing wound dehiscence. BIBA and admitted for I&D and wound closure in OR. *MS -s/p right knee incision and drainage, poly exchange, patella tendon repair w/ vac placement, 10/24/17, POD #3 - ortho following -rec weight bearing to right lower extremity with knee brace and walker - Physical therapy eval pending - encouraged to use Incentive spirometer - pain control - bowel regimen - q4 hours Neuro vascular and monitor drainage of vac dressing - use Knee brace - on abxs * Anemia/onc -normocytic anemia-baseline 8.9, -Hgb 5.4>6.7>6.8 - Fe studies pending - B12 - 1063 - s/p Fe infusion -patient adamantly declines any blood transfusion, patient made aware of the risk MD or patient verbalizes that she understands the risks and still adamantly declines any blood transfusions. - will check stool OB *Hypertension-low BP improved - Bp remains stable off Lisinopril -will hold off on lisinopril and monitor *DM- BS stable - continue metformin, - FS Ac& HS with regular insulin sliding scale * Low Mg -resolved - s/p replacement - recheck Mg level-2 K-wnl * Hypocalcemia - Ca 7.4 - started on Oscal *f/e/n - diabetic diet - replete electrolytes prn ppx - Holding chemical ac secondary to severe anemia, mechanical AC only - protonix Dispo: We will continue to follow the patient. Visit type - Emergency Visit Emergency Visit: Yes ED Registration Date: 10/23/17 Care time: The patient presented to the Emergency Department on the above date and was hospitalized for further evaluation of their emergent condition. - New Patient This patient is new to me today: Yes Date on this admission: 10/27/17 - Critical Care Critical Care patient: No
[2017-10-27] MEDS: VANCOMYCIN 1 GRAM (PRE-DOCKED) 1,000 MG/250 ML BAG IVPB SCH ×2 (09:02→21:20)
[2017-10-27] MEDS: CELECOXIB 200 MG CAPSULE PO SCH ×2 (09:03→21:21)
[2017-10-27] MEDS: oxyCODONE HCL 10 MG SUSTAINED ACTING TABLET PO SCH ×2 (09:03→21:21)
[2017-10-27] MEDS: CALCIUM 250MG/VIT-D 125 UNITS 1 COMBO TABLET PO SCH (09:03)
[2017-10-27] MEDS: oxyCODONE HCL 5 MG TABLET PO PRN ×3 (09:04→21:21)
[2017-10-27] MEDS: ASCORBIC ACID 500 MG TABLET (FP) PO SCH ×2 (09:04→21:21)
[2017-10-27] MEDS: PANTOPRAZOLE 40 MG TABLET (FP) PO SCH (09:04)
[2017-10-27] MEDS: MULTIVITAMINS (DAILY MVI) TABLET (FP) PO SCH (09:04)
[2017-10-27] MEDS: POLYETHYLENE GLYCOL 3350 119 GM BTL PO SCH (10:00)
[2017-10-27] MEDS: LISINOPRIL 10 MG TABLET (FP) PO SCH (13:52)
[2017-10-27 17:15] LABS: ALBUMIN 2.5 g/dl (3.5-5.0); ANION GAP 6 (8-16); BLOOD UREA NITROGEN 5 mg/dl (7-18); CALCIUM 7.8 mg/dl (8.4-10.2); CHLORIDE 101 mmol/L (98-107); CO2 25 mmol/L (22-28); CREATININE 0.5 mg/dl (0.6-1.3); POTASSIUM 4.4 mmol/L (3.5-5.1); SODIUM 132 mmol/L (136-145)
[2017-10-27 17:39] LABS: GLUCOSE,RANDOM 162 mg/dl (74-106)
[2017-10-27] MEDS ORDERED: SODIUM CHLORIDE 1,000 ML IV SCH (18:45)
[2017-10-27] MEDS: SENNOSIDES/DOCUSATE COMBO (SENNA PLUS) TABLET (UD) PO SCH (21:21)
--- NOTE | 2017-10-27 23:30 | PN ---
Progress Note (short form) - Note Progress Note: Pt seen and examined. Comfortable. Awake/alert. No acute events Selected Entries 10/27/17 10/27/17 10/27/17 14:00 18:00 20:55 Temperature 98.4 F 98.2 F Pulse Rate 82 132 H Respiratory 18 20 Rate Blood Pressure 140/52 140/74 O2 Sat by Pulse 95 Oximetry (%) Oxygen Delivery Room Air Method 10/28/17 01:48 Temperature 98.1 F Pulse Rate 67 Respiratory 20 Rate Blood Pressure 114/45 O2 Sat by Pulse 99 Oximetry (%) Oxygen Delivery Nasal Cannula Method Laboratory Tests 10/27/17 10/27/17 07:30 16:54 WBC 3.7 L Hgb 6.8 L* Hct 21.3 L Plt Count 242 Sodium 132 L Potassium 4.4 Chloride 101 Carbon Dioxide 25 Anion Gap 6 L BUN 5 L Creatinine 0.5 L Creat Clearance w eGFR > 60 Random Glucose 162 H D Calcium 7.8 L RLE: VAC in place, functional A/P s/p I&D right TKA, poly exchange, patellar tendon repair VAC dressing changed Continue to monitor H/H Hold PT Knee immobilizer at all times. D/C planning to rehab when H/H stable
[2017-10-28] MEDS: CEFAZOLIN 2 GM/D5W 2 GM/50 ML ML IVPB SCH ×3 (01:30→17:28)
[2017-10-28] MEDS: traMADol HCL 50 MG TABLET PO SCH ×3 (06:21→17:29)
[2017-10-28] MEDS: metFORMIN HCL 500 MG TABLET (FP) PO SCH ×2 (06:22→17:29)
[2017-10-28] MEDS: FERROUS SO4 325 MG TABLET (FP) PO SCH ×4 (08:01→17:29)
[2017-10-28 08:13] LABS: HEMATOCRIT 22.5 % (32.4-45.2); HEMOGLOBIN 7.1 GM/dl (10.7-15.3); MCH 27.9 pg (25.7-33.7); MCHC 31.3 g/dl (32.0-36.0); MEAN PLT VOLUME 5.9 fl (7.5-11.1); PLATELET COUNT 254 K/MM3 (134-434); RBC 2.53 M/mm3 (3.60-5.2); RDW 16.6 % (11.6-15.6); WHITE BLOOD COUNT 4.3 K/mm3 (4.0-10.8)
[2017-10-28] MEDS: ASPIRIN 325 MG TABLET PO SCH (08:19)
[2017-10-28 08:23] LABS: ANION GAP 4 (8-16); BLOOD UREA NITROGEN 6 mg/dl (7-18); CALCIUM 7.9 mg/dl (8.4-10.2); CHLORIDE 103 mmol/L (98-107); CO2 27 mmol/L (22-28); CREATININE 0.5 mg/dl (0.6-1.3); GLUCOSE,RANDOM 127 mg/dl (74-106); SODIUM 134 mmol/L (136-145)
[2017-10-28] MEDS ORDERED: PT OWN MED DRAWER 7, Y5N ONE (09:08)
[2017-10-28] MEDS: CELECOXIB 200 MG CAPSULE PO SCH ×2 (09:19→21:13)
[2017-10-28] MEDS: ASCORBIC ACID 500 MG TABLET (FP) PO SCH ×2 (09:19→21:12)
[2017-10-28] MEDS: MULTIVITAMINS (DAILY MVI) TABLET (FP) PO SCH (09:19)
[2017-10-28] MEDS: LISINOPRIL 10 MG TABLET (FP) PO SCH (09:19)
[2017-10-28] MEDS: PANTOPRAZOLE 40 MG TABLET (FP) PO SCH (09:19)
[2017-10-28] MEDS: CALCIUM 250MG/VIT-D 125 UNITS 1 COMBO TABLET PO SCH (09:20)
[2017-10-28] MEDS: POLYETHYLENE GLYCOL 3350 119 GM BTL PO SCH (09:22)
[2017-10-28] MEDS: oxyCODONE HCL 10 MG SUSTAINED ACTING TABLET PO SCH ×2 (09:26→21:12)
--- NOTE | 2017-10-28 11:42 | PN ---
Progress Note (short form) - Note Progress Note: Pt seen and examined. Comfortable. Awake/alert. No acute events Selected Entries 10/28/17 10/28/17 06:00 09:14 Temperature 98.3 F Pulse Rate 70 Respiratory 18 Rate Blood Pressure 127/55 O2 Sat by Pulse 96 Oximetry (%) Oxygen Delivery Room Air Method Laboratory Tests 10/28/17 10/28/17 07:20 07:20 WBC 4.3 Hgb 7.1 L Hct 22.5 L Plt Count 254 Sodium 134 L Potassium 4.0 Chloride 103 Carbon Dioxide 27 Anion Gap 4 L BUN 6 L Creatinine 0.5 L Creat Clearance w eGFR > 60 Random Glucose 127 H D Calcium 7.9 L RLE: VAC in place, functional A/P s/p I&D right TKA, poly exchange, patellar tendon repair Continue to monitor H/H Hold PT Knee immobilizer at all times. D/C planning to rehab when H/H improved/stable
--- NOTE | 2017-10-28 11:49 | PN ---
Physical Exam: SUBJECTIVE: Patient seen and examined, reports feeling much improved, denies any tactile fever OBJECTIVE:The patient is a 76-year-old morbidly obese female with a past medical history of osteoarthritis, iron deficiency anemia, hypertension, diabetes mellitus and migraines. Patient underwent a right total knee replacement with revision on 10/17/2017. Hyperflexed the knee with weight causing wound dehiscence. BIBA and admitted for I&D and wound closure in OR. Vital Signs Period Temp Pulse Resp BP Sys/Bear Pulse Ox Last 24 Hr 98.1 F-98.6 F 67-132 18-20 108-140/30-74 95-99 GENERAL: Awake, alert, and fully oriented, in no acute distress. HEAD: Normal with no signs of trauma. EYES: Pupils equal, round and reactive to light, extraocular movements intact, pale sclera, conjunctiva Pallar. No lid lag. EARS, NOSE, THROAT: Ears normal, nares patent, oropharynx clear without exudates. Moist mucous membranes. NECK: Normal range of motion, supple without lymphadenopathy, JVD, or masses. LUNGS: Breath sounds equal, clear to auscultation bilaterally. No wheezes, and no crackles. No accessory muscle use. HEART: Regular rate and rhythm, normal S1 and S2 without murmur, rub or gallop. ABDOMEN: Soft, nontender, not distended, normoactive bowel sounds, no guarding, no rebound, no masses. No hepatomegaly or splenomegaly. MUSCULOSKELETAL: Normal range of motion at all joints. No bony deformities or tenderness. No CVA tenderness. UPPER EXTREMITIES: 2+ pulses, warm, well-perfused. No cyanosis. No clubbing. Cap refill <2 seconds. No peripheral edema. LOWER EXTREMITIES: 2+ pulses, warm, well-perfused. No calf tenderness. No peripheral edema. RIGHT LOWER EXTREMITY: Dressing CDI, VAC dressing, less than 3 second capillary refill +3 pedal pulse SCDs NEUROLOGICAL: Cranial nerves II-XII intact. Normal speech. Normal gait. PSYCHIATRIC: Cooperative. Good eye contact. Appropriate mood and affect. SKIN: Warm, dry, normal turgor, no rashes or lesions noted. Laboratory Results - last 24 hr 10/26/17 10/27/17 10/28/17 07:35 16:54 07:20 WBC RBC Hgb Hct MCV MCH MCHC RDW Plt Count MPV Sodium 132 L 134 L Potassium 4.4 4.0 Chloride 101 103 Carbon Dioxide 25 27 Anion Gap 6 L 4 L BUN 5 L 6 L Creatinine 0.5 L 0.5 L Creat Clearance w eGFR > 60 > 60 Random Glucose 162 H D 127 H D Calcium 7.8 L 7.9 L Iron 112 Albumin 2.5 L 10/28/17 07:20 WBC 4.3 RBC 2.53 L Hgb 7.1 L Hct 22.5 L MCV 89.0 MCH 27.9 MCHC 31.3 L RDW 16.6 H Plt Count 254 MPV 5.9 L Sodium Potassium Chloride Carbon Dioxide Anion Gap BUN Creatinine Creat Clearance w eGFR Random Glucose Calcium Iron Albumin Active Medications Generic Name Dose Route Start Last Admin Trade Name Freq PRN Reason Stop Dose Admin Al Hydroxide/Mg Hydroxide 30 ml 10/23/17 15:24 Mylanta Oral Suspension - PO Q4H PRN DYSPEPSIA Ascorbic Acid 500 mg 10/23/17 22:00 10/28/17 09:19 Vitamin C - PO 500 mg BID MERLIN Administration Aspirin 325 mg 10/26/17 08:00 10/28/17 08:19 Asa - PO 325 mg DAILY@0800 MERLIN Administration Calcium/Vitamin D 1 tab 10/27/17 10:00 10/28/17 09:20 Oscal 250 Mg+D - PO 1 tab DAILY MERLIN Administration Celecoxib 200 mg 10/23/17 22:00 10/28/17 09:19 Celebrex - PO 200 mg BID MERLIN Administration Ferrous Sulfate 325 mg 10/24/17 08:00 10/28/17 08:18 Feosol - PO 325 mg TIDCM MERLIN Administration Cefazolin Sodium/Dextrose 2 gm in 50 mls @ 100 mls/hr 10/25/17 02:00 09:16 Ancef 2 Gm Premixed Ivpb - IVPB 100 mls/hr Q8H-IV MERLIN Administration Lisinopril 10 mg 10/24/17 10:00 10/28/17 09:19 Prinivil PO 10 mg DAILY MERLIN Administration Magnesium Hydroxide 30 ml 10/23/17 15:24 10/27/17 12:26 Milk Of Magnesia - PO 30 ml PRN PRN Administration CONSTIPATION Metformin HCl 500 mg 10/23/17 16:30 10/28/17 06:22 Glucophage - PO 500 mg BIDAC MERLIN Administration Multivitamins/Minerals/Vitamin C 1 tab 10/24/17 10:00 10/28/17 09:19 Tab-A-Vit - PO 1 tab DAILY MERLIN Administration Ondansetron HCl 4 mg 10/24/17 19:58 10/25/17 00:30 Zofran Injection IVPUSH 4 mg Q6H PRN Administration NAUSEA AND/OR VOMITING Oxycodone HCl 5 mg 10/23/17 15:24 10/27/17 21:21 Roxicodone - PO 5 mg Q4H PRN Administration PAIN LEVEL 1-5 Oxycodone HCl 10 mg 10/23/17 22:00 10/28/17 09:26 Oxycontin - PO Not Given BID MERLIN Pantoprazole Sodium 40 mg 10/24/17 10:00 10/28/17 09:19 Protonix - PO 40 mg DAILY MERLIN Administration Polyethylene Glycol 17 gm 10/27/17 10:00 10/28/17 09:22 Miralax (For Daily Use) - PO 17 grams DAILY MERLIN Administration Senna/Docusate Sodium 2 tablet 10/23/17 22:00 10/27/17 21:21 Pericolace - PO 2 tablet HS MERLIN Administration Tramadol HCl 50 mg 10/23/17 15:45 10/28/17 06:21 Ultram - PO 50 mg Q6HPO MERLIN Administration Vancomycin HCl 1,000 mg 10/24/17 09:00 10/27/17 21:20 Vancomycin (Pre-Docked) IVPB 1,000 mg BID@0900,2100 MERLIN Administration Protocol ASSESSMENT/PLAN: 1) MS s/p right knee incision and drainage, poly exchange, patella tendon repair w/ vac placement, 10/24/17 - discussed with orthopedist Dr. Ceja, patient may ambulate with physical therapy ss per orthopedist weightbearing to right lower extremity with knee brace and walker - Incentive spirometer - When necessary pain medication - q4 hoursNeurovascular and monitor drainage of vac dressing-->vAC dressing to be discontinued tomorrow, aguacel dressing to be placed as per orthopedist ( Marcial) 2) heme/onc normocytic anemia -acute blood loss anemia, repeat 7.1 today, iron and vitamin b12 studies noted, tracy (10/25 & 10/28) - patient adamantly declines any blood transfusion, patient made aware of the risk DC or patient verbalizes that she understands the risks and still adamantly declines any blood transfusions. 3) cardiovascular hypertension - hold lisinopril, labile b/p, monitor b/p q4h 4) endo DM - continue metformin, fingersticks achs with regular insulin sliding scale f/e/n - diabetic diet - replete electrolytes prn ppx - hold chemical ac secondary to severe anemia, mechanical AC only - protonix Dispo: We will continue to follow the patient. Thank you for this consultative opportunity. Visit type - Emergency Visit Emergency Visit: Yes ED Registration Date: 10/23/17 Care time: The patient presented to the Emergency Department on the above date and was hospitalized for further evaluation of their emergent condition. - New Patient This patient is new to me today: No - Critical Care Critical Care patient: No - Discharge Referral Referred to [facility] No
[2017-10-28] MEDS ORDERED: IRON SUCROSE INJECTION 200 MG in SODIUM CHLORIDE 100 ML IVPB ONE (12:00)
[2017-10-28] MEDS: VANCOMYCIN 1 GRAM (PRE-DOCKED) 1,000 MG/250 ML BAG IVPB SCH ×2 (12:24→21:13)
--- NOTE | 2017-10-28 13:32 | PN ---
Progress Note (short form) - Note Progress Note: H/H improved. Vitals stable. OK to attempt PT - OOB, ambulate with walker. Knee immobilizer must be on at all times to keep knee in extension.
[2017-10-28] MEDS: SENNOSIDES/DOCUSATE COMBO (SENNA PLUS) TABLET (UD) PO SCH (21:13)
[2017-10-29] MEDS: CEFAZOLIN 2 GM/D5W 2 GM/50 ML ML IVPB SCH ×2 (02:00→10:28)
[2017-10-29] MEDS: traMADol HCL 50 MG TABLET PO SCH ×3 (05:57→12:11)
[2017-10-29] MEDS: metFORMIN HCL 500 MG TABLET (FP) PO SCH (06:02)
[2017-10-29] MEDS: oxyCODONE HCL 5 MG TABLET PO PRN (08:10)
[2017-10-29] MEDS: FERROUS SO4 325 MG TABLET (FP) PO SCH ×2 (08:10→12:11)
[2017-10-29] MEDS: ASPIRIN 325 MG TABLET PO SCH (08:10)
[2017-10-29 08:28] LABS: HEMATOCRIT 22.9 % (32.4-45.2); HEMOGLOBIN 7.3 GM/dl (10.7-15.3); MCH 28.2 pg (25.7-33.7); MCHC 31.6 g/dl (32.0-36.0); MEAN CELL VOLUME 89.1 fl (80-96); MEAN PLT VOLUME 5.9 fl (7.5-11.1); PLATELET COUNT 260 K/MM3 (134-434); RBC 2.57 M/mm3 (3.60-5.2); RDW 17.6 % (11.6-15.6); WHITE BLOOD COUNT 4.4 K/mm3 (4.0-10.8)
[2017-10-29] MEDS ORDERED: PT OWN MED DRAWER 7, Y5N ONE (10:03)
[2017-10-29 10:17] VITALS: BP 124/57; PULSE 79; TEMP 98.1
[2017-10-29] MEDS: VANCOMYCIN 1 GRAM (PRE-DOCKED) 1,000 MG/250 ML BAG IVPB SCH (10:27)
[2017-10-29] MEDS: oxyCODONE HCL 10 MG SUSTAINED ACTING TABLET PO SCH (10:28)
[2017-10-29] MEDS: LISINOPRIL 10 MG TABLET (FP) PO SCH (10:28)
[2017-10-29] MEDS: MULTIVITAMINS (DAILY MVI) TABLET (FP) PO SCH (10:28)
[2017-10-29] MEDS: ASCORBIC ACID 500 MG TABLET (FP) PO SCH (10:28)
[2017-10-29] MEDS: CELECOXIB 200 MG CAPSULE PO SCH (10:28)
[2017-10-29] MEDS: PANTOPRAZOLE 40 MG TABLET (FP) PO SCH (10:28)
[2017-10-29] MEDS: POLYETHYLENE GLYCOL 3350 119 GM BTL PO SCH (10:29)
[2017-10-29] MEDS: CALCIUM 250MG/VIT-D 125 UNITS 1 COMBO TABLET PO SCH (10:31)
--- NOTE | 2017-10-29 13:14 | DS ---
Physical Examination Vital Signs: Vital Signs Temperature 98.1 F 10/29/17 10:15 Pulse Rate 79 10/29/17 10:15 Respiratory Rate 19 10/29/17 10:15 Blood Pressure 124/57 10/29/17 10:15 O2 Sat by Pulse Oximetry (%) 94 L 10/29/17 06:51 Labs: CBC, BMP 10/29/17 08:00 10/28/17 07:20 Discharge Summary Reason For Visit: KNEE INJURY Current Active Problems Patellar tendon avulsion (Acute) Wound dehiscence (Acute) Procedures: Principal: I&D of right knee, polythylene exchange, patellar tendon avulsion repair, wound closure. Hospital Course: Admitted for wound dehiscence after fall in rehab. Originally s/p R TKA revision 10/17/17. Taken to OR for I&D and wound closure and found to have avulsion of patellar tendon. I&D, poly exchange, patellar tendon repair, wound closure . Procedure performed without complications. Pt received postoperative antibiotic prophylaxis and DVT ppx with ASA 325mg daily. Had postoperative blood loss anemia but no transfusion was performed due to patient being a [employer]oroast[employer] and refusing blood products. After several days of bedrest and observation H/H improved. Was able to get OOB with physical therapy. Stable for discharge to SNF with outpatient followup. MUST HAVE KNEE BRACE ON AT ALL TIMES, IN BED AND OUT. KNEE MUST REMAIN IN EXTENSION FOR 6 WEEKS TO PROTECT PATELLAR TENDON REPAIR. MAY DO PT WITH BRACE ON AND FULL WBAT. Condition: Stable - Instructions Diet, Activity, Other Instructions: Dr. Ceja - Knee Replacement Instructions Keep the Aquacel dressing on until removed by Dr. Ceja in 10-14 days - it is antibacterial and waterproof and you can shower with it on. Call the office for a follow-up appointment with Dr. Ceja in 10-14 days. [phone] Take one Aspirin 325mg daily for 6 weeks to prevent blood clots in your legs. Take one Pantoprazole 40mg daily for 6 weeks to protect against heartburn and ulcers. Take Cephalexin (antibiotic) 3x/day for 10 days to help prevent skin infection. Take a multivitamin, stool softener, and extra Vitamin C supplement daily. For pain: *Mild pain (1-3/10): Take 1 Tramadol tablet every 4 hours as needed. Moderate pain (4-6/10): Take 1 Tramadol tablet and 1 Percocet tablet every 4 hours as needed. Severe pain (7-10/10): Take 1 Tramadol tablet and 2 Percocet tablets every 4 hours as needed. Activity: You can put as much weight on the operative leg as you want. KNEE IMMOBILIZER MUST BE KEPT ON AT ALL TIMES TO PROTECT PATELLAR TENDON REPAIR KNEE MUST STAY IN EXTENSION AT ALL TIMES! Disposition: CUSTODIAL FACILITY - Home Medications Comprehensive Discharge Medication List: Ambulatory Orders Lisinopril 10 mg PO DAILY 10/08/17 Metformin HCl [Glucophage] 500 mg PO BID 10/08/17 Ascorbic Acid [Vitamin C -] 500 mg PO BID tablet 10/21/17 Aspirin [ASA -] 325 mg PO DAILY@0800 tablet 10/21/17 Mag Hydrox/Al Hydrox/Simeth [Mylanta Oral Suspension -] 30 ml PO Q4H PRN cup Magnesium Hydrox 2400MG/30Ml [Milk of Magnesia -] 30 ml PO PRN PRN cup Multivitamins [Multivit ([facility] Formulary)] 1 tab PO DAILY tab 10/21/17 Pantoprazole Sodium [Protonix -] 40 mg PO DAILY #40 tablet.ec 10/21/17 Docusate Sodium 200 mg PO HS 10/23/17 Mag Hydrox/Aluminum Hyd/Simeth [Alum-Mag Hydroxide-Simeth Liq] 30 ml PO Q4H PRN 10/23/17 Sennosides/Docusate Sodium [Pericolace -] 2 tablet PO HS 10/23/17 Aspirin [ASA -] 325 mg PO DAILY@0800 tablet 10/29/17 Calcium 250Mg/Vit-D 125 Units [Oscal 250 mg+D -] 1 tab PO DAILY tab 10/29/17 Cephalexin Monohydrate [Keflex -] 500 mg PO Q8H #30 tab 10/29/17 Ferrous Sulfate [Feosol] 325 mg PO TIDCM ud 10/29/17 Oxycodone HCl/Acetaminophen [Percocet 5-325 mg Tablet] 1 - 2 tab PO Q4H PRN #60 tablet MDD 10 10/29/17 Polyethylene Glycol 3350 [Miralax 119 gm Btl -] 17 gm PO DAILY bottle 10/29/17 traMADol HCL [Ultram -] 50 mg PO Q4H PRN #42 tablet MDD 6 10/29/17
== END 2017-10-29 14:55 | DRG 908 ==
LOC: JER 12:16 → FM/S 20:19
PROVIDERS: ADMIT Student in an Organized Health Care Education/Training Program; ATTEND Student in an Organized Health Care Education/Training Program
PROC: 0S9C0ZZ Drainage of Right Knee Joint, Open Approach (ICD-10-PCS; principal; 2017-10-25)
PROC: 0SPC09Z Removal of Liner from Right Knee Joint, Open Approach (ICD-10-PCS; 2017-10-25)
PROC: 0SUV09Z Supplement Right Knee Joint, Tibial Surface with Liner, Open Approach (ICD-10-PCS; 2017-10-25)
DX: T81.32XA Disruption of internal operation (surgical) wound, not elsewhere classified, initial encounter (principal); D62 Acute posthemorrhagic anemia; S83.004A Unspecified dislocation of right patella, initial encounter; Y83.8 Other surgical procedures as the cause of abnormal reaction of the patient, or of later complication, without mention of misadventure at the time of the procedure; Z85.3 Personal history of malignant neoplasm of breast; E11.9 Type 2 diabetes mellitus without complications; I10 Essential (primary) hypertension; E66.8 Other obesity; Z68.32 Body mass index [BMI] 32.0-32.9, adult; D50.9 Iron deficiency anemia, unspecified; G43.809 Other migraine, not intractable, without status migrainosus; E83.42 Hypomagnesemia; E83.51 Hypocalcemia; W17.89XA Other fall from one level to another, initial encounter; Y92.838 Other recreation area as the place of occurrence of the external cause
CPT/HCPCS: 36415; 73552-TC-RT-FY; 73560-TC-RT-FY; 73590-TC-RT-FY; 80048; 82040; 82607; 82728; 82962; 83540; 83550; 83735; 84100; 85025; 85027; 85044; 97116-GP; 97162-GP; 99283-25; G0480; J0131; J1756; J7030